=== PATIENT | female | born 1960 | race Caucasian/White ===

== ENCOUNTER 2024-05-09 09:45 | Emergency (ER) | payer OTHER, SELFPAY ==
[2024-05-09 10:01] VITALS: BP 159/92
[2024-05-09 11:34] VITALS: BMI 32.7
[2024-05-09] MEDS: ATIVAN 0.5 MG PO (11:55)
[2024-05-09] MEDS: TORADOL 15 MG IV (11:56)
[2024-05-09] MEDS: ZOFRAN 4 MG IV (11:56)
[2024-05-09] MEDS: NSS 1000 IV (11:56)
[2024-05-09 12:17] LABS: % Basophils 0.5 % (0-2); % Eosinophils 2.2 % (0-6); % Immature Granulocytes 0.3 % (0-0.5); % Monocytes 5.8 % (1.7-9.3); % Neutrophils 65.2 % (42.2-75.2); Absolute Basophils 0.1 10^3/uL (0-0.2); Absolute Eosinophils 0.2 10^3/uL (0-0.7); Absolute Lymphocytes 2.4 10^3/uL (1.2-3.4); Absolute Monocytes 0.5 10^3/uL (0.1-0.6); Absolute Neutrophils 6.1 10^3/uL (1.4-6.5); Hematocrit 41.1 % (37.0-47.0); Hemoglobin 13.9 g/dL (12.0-16.0); Mean Corp Hgb Conc. 33.8 g/dL (33.0-37.0); Mean Corpuscular Hgb 30.4 pg (27.0-31.0); Mean Corpuscular Volume 89.9 fL (81.0-99.0); Mean Platelet Volume 8.7 fL (7.4-10.4); Nucleated Red Blood Cells % 0 %; Platelet Count 261 10^3/uL (130-400); Red Blood Cell Count 4.57 10^6/uL (4.20-5.40); Red Cell Dist. Width 13.5 % (11.5-14.5); White Blood Cell Count 9.3 10^3/uL (4.8-10.8)
[2024-05-09 12:22] LABS: Urine Albumin Negative (Neg - Trace); Urine Bilirubin Negative (Negative); Urine Character Clear (Clear); Urine Color Yellow; Urine Glucose Negative (Negative); Urine Ketone Negative (Negative); Urine Leukocyte Negative (Negative); Urine Nitrite Negative (Negative); Urine Occult Blood Negative (Negative); Urine Urobilinogen Negative (Neg - 1+)
[2024-05-09 12:33] LABS: ALT (SGPT) 17 U/L (0-35); AST (SGOT) 28 U/L (14-36); Albumin 4.1 g/dl (3.5-5.0); Alkaline Phosphatase 79 U/L (38-126); Blood Urea Nitrogen 9 mg/dl (7-17); Calcium 9.6 mg/dl (8.4-10.2); Carbon Dioxide 25 mmol/L (22-30); Chloride 110 mmol/L (98-107); Estimated Creatinine Clearance 69 ml/min; Glucose 88 mg/dl (70-99); Lipase 119 U/L (23-300); Potassium 4.1 mmol/L (3.5-5.1); Sodium 139 mmol/L (135-145); Total Bilirubin 0.5 mg/dl (0.2-1.3); Total Protein 6.7 g/dl (6.3-8.2); eGFR > 60.00
[2024-05-09 13:00] VITALS: BP 140/69
[2024-05-09 14:00] VITALS: BP 117/72
[2024-05-09 15:00] VITALS: BP 130/82
--- NOTE | 2024-05-09 15:19 | ED.GENMED ---
History of Present Illness
General
Chief Complaint: Abdominal Pain
Source: patient
Exam Limitations: none
Time Seen by Provider: 05/09/24 10:42
Nursing documentation reviewed up to this point in time: agreed with
History of Present Illness
History of Present Illness:
63-year-old female past medical history of diverticulosis anxiety depression presenting to the emergency department today with concerns of left lower quadrant abdominal pain over the past few days. No significant change in bowel movements does have
some nausea no fevers no chest pain or shortness of breath. Has been feeling somewhat anxious.
Past History
Past History
ED Past Medical History: Psychiatric (anxiety, depression) and Other (Diverticulitis, diverticulosis, osteoarthritis, kidney stone)
ED Past Surgical History: Cholecystectomy, Gynecological and Orthopedic
Social History
Tobacco: Smoker
Alcohol: None
Personal: Single
Living: alone
Review of Systems
Review of Systems
Allergies reviewed?: Yes
All Other Systems: ROS reviewed and negative except as documented in HPI and ROS
Phy Exam
Physical Exam
Physical Exam:
GENERAL: Alert , in no apparent distress
EYE: pupils equal and reactive
NECK: Supple, no significant adenopathy.
ENT: o/p clr, mmm.
CARDIAC: Regular rate and rhythm .
LUNGS: Clear breath sounds bilaterally, no acute respiratory distress, no wheezes/rales/rhonchi
ABDOMEN: Pain to the left lower quadrant
NEUROLOGICAL: Alert and oriented, no focal neuro deficits
SKIN: Warm and dry, skin intact.
MUSCULOSKELETAL: No edema, well perfused.
PSYCH: Normal and appropriate interaction.
Course
Orders/Labs/Results
Orders:
Orders
05/09/24 10:58
CT Abd/Pel (IV only)-DH only Urgent
Comment:
Reason For Exam: llq pain
0.9% Sodium Chloride 1000 ml [Nss] 1,000 ml IV BOLUS
Ketorolac [Toradol] 15 mg IV NOW STA
Ondansetron Injectable [Zofran] 4 mg IV NOW STA
05/09/24 11:14
Lorazepam [Ativan] 0.5 mg PO NOW STA
05/09/24 11:54
Complete Blood Count/With Diff Urgent
Comprehensive Metabolic Panel Urgent
Lipase Urgent
05/09/24 12:00
Urinalysis Reflex To Culture Urgent
Date Specimen was Collected: 05/09/24
Time Specimen was Collected: 11:59
05/09/24 14:47
LevoFLOXacin [Levaquin] 750 mg PO NOW STA
05/09/24 15:03
MetroNIDAZOLE [Flagyl] 500 mg PO NOW STA
Abnormal Lab Results
05/09/24
11:54
Chloride 110 H mmol/L
(98-107)
05/09/24 11:54
05/09/24 11:54
Vital Signs
Initial and Last Documented VS:
Initial Vital Signs
Temp Pulse Resp BP Pulse Ox
98.3 F 77 18 159/92 99
05/09/24 10:01 05/09/24 10:01 05/09/24 10:01 05/09/24 10:01 05/09/24 10:01
Last Documented Vital Signs
Temp Pulse Resp BP Pulse Ox
98.3 F 70 20 117/72 98
05/09/24 10:01 05/09/24 14:30 05/09/24 14:30 05/09/24 14:00 05/09/24 14:30
MDM/Problems Addressed
MDM/Problems Addressed:
63-year-old female presenting to the emergency department today with concerns of left lower quadrant abdominal pain over the past few days. Does have a history of diverticulitis and claims this feels very similar to this. Here does have
reproducible pain to left lower quadrant. Labs unremarkable no white count no fever generally appears well urinalysis normal CT scan without obvious diverticulitis. Patient is very concerned that this could be early diverticulitis and claims that
she typically needs antibiotics for this. Risk and benefit of starting antibiotics were thoroughly discussed with the patient ended up deciding on starting antibiotics and otherwise close outpatient follow-up. Return precautions given.
*Critical Care Note
Total Time (30-74mins, 75-104mins- exclusive of procedures): Not Applicable
ED Attending Note
-
Portions of this chart may have been created with voice recognition software.� Occasional wrong word or��sound alike� substitutions may have occurred due to the inherent limitations of voice recognition software.
Discharge Plan
Departure
Patient Disposition: Home (Routine Discharge)
Date of Disposition: 05/09/24
Time of Disposition: 15:27
Patient with high blood pressure during this ER visit?: No
Condition: Good
Covid-19: Not Applicable
Discharge Problem:
Diverticulitis
Instructions: Diverticulitis (DC)
Prescriptions:
New
levofloxacin 750 mg tablet
750 mg PO DAILY 7 Days Qty: 7 0RF
metronidazole 500 mg tablet
500 mg PO BID 7 Days Qty: 14 0RF
No Action
lorazepam 0.5 MG tablet
0.5 tab PO BID
Patient Comments:
08/03/23 filled on 07/28/23 #30
Theragen Tablet
1 tab PO MOFR
Benefiber (guar gum) Packet
1 tbsp PO DAILY
furosemide 20 mg Tablet
20 mg PO DAILYPRN PRN (Reason: fluid retention)
diphenhydramine-acetaminophen [Tylenol PM Extra Strength] 25-500 mg Tablet
1 tab PO HS
Visbiome 112.5 billion cell Capsule
1 cap PO DAILY
albuterol sulfate 90 mcg/actuation Aerosol Powdr Breath Activated
2 inh INHALATION R Q6HPRN PRN (Reason: sob)
cyclobenzaprine 10 mg tablet
10 mg PO TID PRN (Reason: muscle spasm) Qty: 12 0RF
dicyclomine 10 mg capsule
10 mg PO QID PRN (Reason: abdominal pain) Qty: 30 0RF
Referrals:
Ken Gutierrez MD [Family Provider] -
Activity Restrictions/Additional Instructions:
You came to the emergency department today with concerns of lower abdominal pain. No emergent findings on exam but could be early diverticulitis. Please take the prescribed indications and return for any worsening, new or concerning symptoms.
Otherwise please follow closely with your GI doctor and primary care doctor within 1 to 2 weeks.
Interventions
Interventions:
*Risk Screen - Suicide Last Done: 05/09/24 10:03
*General Assessment Last Done: 05/09/24 10:03
*Neglect/Abuse Screening Last Done: 05/09/24 10:03
ED- Fall Risk Assessment Last Done: 05/09/24 11:34
*ED COVID-19 Vaccine History Last Done: 05/09/24 11:34
GJ-Joazxl-Rxyhluuncr Assessment Last Done: 05/09/24 11:34
Discharge Date and Time
Print Language: IRISH
[2024-05-09 16:00] VITALS: BP 153/80
[2024-05-09] MEDS: LEVAQUIN 750 MG PO (16:07)
[2024-05-09] MEDS: FLAGYL 500 MG PO (16:07)
== END 2024-05-09 16:37 | disposition home or self-care (01) ==
LOC: EMR 09:45
PROVIDERS: Physician Assistant; EMERGENCY PHYSICIAN Emergency Medicine; FAMILY PHYSICIAN Family Medicine
DX: K57.92 Diverticulitis of intestine, part unspecified, without perforation or abscess without bleeding (principal); F41.8 Other specified anxiety disorders; F17.200 Nicotine dependence, unspecified, uncomplicated; M19.90 Unspecified osteoarthritis, unspecified site; Z87.442 Personal history of urinary calculi; Z90.49 Acquired absence of other specified parts of digestive tract; Z90.710 Acquired absence of both cervix and uterus
CPT/HCPCS: 99284; 96374; 96375; 96361; 74177; 80053; 81003; 83690; 85025; Q9967

== ENCOUNTER 2024-05-29 18:55 | Emergency (ER) | payer OTHER, SELFPAY ==
[2024-05-29 19:03] VITALS: BP 150/97
[2024-05-29 19:24] LABS: Urine Albumin Negative (Neg - Trace); Urine Bilirubin Negative (Negative); Urine Character Clear (Clear); Urine Color Yellow; Urine Glucose Negative (Negative); Urine Ketone Negative (Negative); Urine Leukocyte Trace (Negative); Urine Nitrite Negative (Negative); Urine Occult Blood Negative (Negative); Urine Urobilinogen Negative (Neg - 1+)
[2024-05-29 19:35] LABS: Urine Red Blood Cell 0-2 /HPF (0-2); Urine White Cell 0-2 /HPF (0-5)
[2024-05-29 19:41] LABS: ALT (SGPT) 15 U/L (0-35); AST (SGOT) 27 U/L (14-36); Albumin 4.2 g/dl (3.5-5.0); Alkaline Phosphatase 76 U/L (38-126); Blood Urea Nitrogen 8 mg/dl (7-17); Calcium 9.6 mg/dl (8.4-10.2); Carbon Dioxide 30 mmol/L (22-30); Chloride 104 mmol/L (98-107); Glucose 89 mg/dl (70-99); Lipase 114 U/L (23-300); Potassium 4.3 mmol/L (3.5-5.1); Sodium 142 mmol/L (135-145); Total Bilirubin 0.4 mg/dl (0.2-1.3); Total Protein 6.7 g/dl (6.3-8.2); eGFR > 60.00
[2024-05-29 19:43] LABS: Hematocrit 39.3 % (37.0-47.0); Mean Corp Hgb Conc. 33.1 g/dL (33.0-37.0); Mean Corpuscular Volume 90.6 fL (81.0-99.0); Mean Platelet Volume 8.4 fL (7.4-10.4); Platelet Count 287 10^3/uL (130-400); Red Blood Cell Count 4.34 10^6/uL (4.20-5.40); Red Cell Dist. Width 13.2 % (11.5-14.5); White Blood Cell Count 9.4 10^3/uL (4.8-10.8)
[2024-05-29 19:58] LABS: % Basophils 0.5 % (0-2); % Eosinophils 2.9 % (0-6); % Immature Granulocytes 0.2 % (0-0.5); % Lymphocytes 34.2 % (20.5-51.1); % Monocytes 7.4 % (1.7-9.3); % Neutrophils 54.8 % (42.2-75.2); Absolute Basophils 0.1 10^3/uL (0-0.2); Absolute Eosinophils 0.3 10^3/uL (0-0.7); Absolute Lymphocytes 3.2 10^3/uL (1.2-3.4); Absolute Monocytes 0.7 10^3/uL (0.1-0.6); Absolute Neutrophils 5.1 10^3/uL (1.4-6.5); Nucleated Red Blood Cells % 0 %
--- NOTE | 2024-05-29 23:55 | ED.GENMED ---
History of Present Illness
General
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
Source: patient, previous radiology exam (Previous CT of the abdomen and pelvis 3 weeks ago, overall unremarkable and unchanged from previous August 2023. Unremarkable pelvic ultrasound August 2023.) and previous hospital records (Several ED
visits for similar complaints including twice August 2023 and most recently May 09, 2024)
Exam Limitations: none
Time Seen by Provider: 05/29/24 22:16
Nursing documentation reviewed up to this point in time: agreed with
History of Present Illness
History of Present Illness:
This is a 63-year-old woman who has history of chronic intermittent abdominal pain, chronic back pain status post lower lumbar laminectomy 2022. She has history of diverticulosis and remote history of diverticulitis, history of kidney stones as
well as reported history of ovarian cysts. Prior hysterectomy and right oophorectomy but reports left ovary remains.
She presents with persistent suprapubic left lower quadrant abdominal pain that has been ongoing for several weeks. Similar pain noted during 2 ED visits in August 2023 as well.
During those ED visits in August as well as most recently May 09, ED workup unremarkable with unremarkable laboratory studies, unremarkable urinalysis and unremarkable CT of the abdomen and pelvis in August and again May 09. Unremarkable
pelvic ultrasound August 2023 without visualization of the left ovary.
During most recent visit May 09 patient complained of left lower quadrant pain, suprapubic pain which she states felt similar to prior episodes of diverticulitis. Despite unremarkable labs and CAT scan showing diverticulosis without evidence of
diverticulitis patient remained concerned for early diverticulitis thus was prescribed a 1 week course of Levaquin and Flagyl which she initiated but then states she discontinued after 3 days due to no improvement in pain.
She admits to some chronic urinary frequency but has had no dysuria nor urgency nor incontinence. She does note chronic low back pain but stable and unchanged and states she has had a recent visit with her neurosurgeon who does not believe
abdominal pain is related to her lumbar spine.
She has had no leg pain, no weakness no numbness, no fever no chills. She does admit to some chronic nausea but has had no vomiting.
She follows with GI and she was recommended to undergo gastric emptying study.
Patient states she was evaluated by her log raft worker several weeks ago with unremarkable exam.
She is concerned that her lower abdominal pain is related to her left ovary.
Past History
Past History
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
ED Past Surgical History: Cholecystectomy, Gynecological and Orthopedic
Social History
Tobacco: Smoker
Alcohol: None
Personal:
Living: alone
Employment: Disabled
Family History
Family History: Other (Noncontributory)
Phy Exam
Physical Exam
Physical Exam:
GENERAL: 63-year-old woman appears her stated age, awake and alert, mildly anxious, intermittently tearful but easily communicative.
EYE: anicteric
NECK: Supple, nontender, no meningismus, no significant adenopathy.
ENT: oral mucosa is moist. No rhinorrhea.
CARDIAC: Regular rate and rhythm. no murmur.
LUNGS: Clear breath sounds bilaterally, no acute respiratory distress, no wheezes/rales/rhonchi
ABDOMEN: Rotund, soft, nondistended, mild tenderness with deep palpation only to the left lower quadrant, no r/g, no cvat. normoactive BS. No palpable masses. No inguinal tenderness.
NEUROLOGICAL: Alert and oriented x3, no focal neuro deficits. Gait is jovel and steady.
SKIN: Warm and dry, normal color, skin intact. No rash.
MUSCULOSKELETAL: No C/C/E. peripheral pulses are full and equal b/l. No palpable tenderness.
PSYCH: Mildly anxious. Intermittently tearful. Fair insight and judgment. Normal speech pattern.
Course
Orders/Labs/Results
Orders:
Orders
05/29/24 19:19
Complete Blood Count/With Diff Urgent
Comprehensive Metabolic Panel Urgent
Lipase Urgent
Urinalysis Reflex To Culture Urgent
Date Specimen was Collected: 05/29/24
Time Specimen was Collected: 19:08
Urine Microscopic Reflex Cult Urgent
05/29/24 22:32
Pelvis & Transvaginal US [US Pelvis W Transvag Combined] Urgent
Comment:
Reason For Exam: LLQ pain
Abnormal Lab Results
05/29/24
19:19
Absolute Monos (auto) 0.7 H 10^3/uL
(0.1-0.6)
Leukocyte Esterase Rfl Trace A
(Negative)
05/29/24 19:19
05/29/24 19:19
Vital Signs
Initial and Last Documented VS:
Initial Vital Signs
Temp Pulse Resp BP Pulse Ox
98.5 F 66 16 150/97 98
05/29/24 19:03 05/29/24 19:03 05/29/24 19:03 05/29/24 19:03 05/29/24 19:03
Last Documented Vital Signs
Temp Pulse Resp BP Pulse Ox
98.5 F 66 16 150/97 98
05/29/24 19:03 05/29/24 19:03 05/29/24 19:03 05/29/24 19:03 05/29/24 19:03
MDM/Problems Addressed
Differential Diagnosis Includes:
Patient presents with left lower quadrant pain, ongoing for several weeks.
Unremarkable ED evaluation May 09 with unremarkable labs, unremarkable CT abdomen pelvis showing diverticulosis without diverticulitis.
Despite these findings, 1 week course of Levaquin and Flagyl prescribed which patient discontinued after 3 days due to no improvement in pain.
Reportedly has left ovary in place status post hysterectomy and right oophorectomy.
There could be some concern for left ovary pathology versus irritable bowel, constipation, UTI.
Labs again are unremarkable and urinalysis is unremarkable as well.
Will plan for pelvic ultrasound assess for potential ovarian pathology however CT abdomen pelvis 3 weeks ago showed no evidence of pelvic mass.
*Radiology
Radiology exam reviewed: radiology read reviewed
*Pulse Oximetry
Patient hypoxic: no
*Critical Care Note
Total Time (30-74mins, 75-104mins- exclusive of procedures): Not Applicable
Update Note
Update Note:
05/30/2024 0021 AM
Pelvic ultrasound is unremarkable. Left ovary not visualized. No appreciable pelvic mass nor pelvic free fluid.
Patient admits that she is under significant stress, family related stress which I believe is aggravating her lower abdominal pain. I suspect an element of irritable bowel. She does have prescription for Bentyl at home but has not tried this.
Recommend she try Bentyl, 10 to 20 mg 4 times daily as needed for abdominal pain.
Other supportive measures including heating pad. She does use medical marijuana as well which may be helpful.
She has also been encouraged to follow-up with her broadcast program director for further evaluation.
Return precautions discussed.
ED Attending Note
-
Portions of this chart may have been created with voice recognition software.� Occasional wrong word or��sound alike� substitutions may have occurred due to the inherent limitations of voice recognition software.
Discharge Plan
Departure
Patient Disposition: Home (Routine Discharge)
Date of Disposition: 05/30/24
Time of Disposition: 00:22
Patient with high blood pressure during this ER visit?: No
Condition: Good
Discharge Problem:
Recurrent left lower quadrant abdominal pain
Instructions: Irritable bowel syndrome
Prescriptions:
No Action
lorazepam 0.5 MG tablet
0.5 tab PO BID
Patient Comments:
08/03/23 filled on 07/28/23 #30
Theragen Tablet
1 tab PO MOFR
Benefiber (guar gum) Packet
1 tbsp PO DAILY
furosemide 20 mg Tablet
20 mg PO DAILYPRN PRN (Reason: fluid retention)
diphenhydramine-acetaminophen [Tylenol PM Extra Strength] 25-500 mg Tablet
1 tab PO HS
Visbiome 112.5 billion cell Capsule
1 cap PO DAILY
albuterol sulfate 90 mcg/actuation Aerosol Powdr Breath Activated
2 inh INHALATION R Q6HPRN PRN (Reason: sob)
cyclobenzaprine 10 mg tablet
10 mg PO TID PRN (Reason: muscle spasm) Qty: 12 0RF
dicyclomine 10 mg capsule
10 mg PO QID PRN (Reason: abdominal pain) Qty: 30 0RF
levofloxacin 750 mg tablet
750 mg PO DAILY 7 Days Qty: 7 0RF
metronidazole 500 mg tablet
500 mg PO BID 7 Days Qty: 14 0RF
Referrals:
Sondra Rodriguez MD [Active] - Call in 1-3 days for appt
Ken Gutierrez MD [Family Provider] -
Activity Restrictions/Additional Instructions:
Give the dicyclomine to try taking 10 to 20 mg 4 times daily as needed for abdominal pain.
Continue local heat with heating pad.
Continue medical marijuana.
Follow-up with your broadcast program director for further evaluation. You have been provided with referral information for [facility] broadcast program director, Dr. Rodriguez as an alternative for GI follow-up.
Interventions
Interventions:
*Risk Screen - Suicide Last Done: 05/29/24 22:31
*General Assessment Last Done: 05/29/24 22:31
*Neglect/Abuse Screening Last Done: 05/29/24 22:31
*ED COVID-19 Vaccine History Last Done: 05/29/24 22:31
*Nursing Disposition Last Done: 05/30/24 00:22
ED-Female Genitourinary Assessment Last Done: 05/29/24 22:31
Discharge Date and Time
Discharge Date/Time: 05/30/24 00:22
Print Language: LUXEMBOURGISH
== END 2024-05-30 00:22 | disposition home or self-care (01) ==
LOC: EMR 18:55
PROVIDERS: Emergency Medicine; EMERGENCY PHYSICIAN Emergency Medicine; FAMILY PHYSICIAN Family Medicine
DX: R10.32 Left lower quadrant pain (principal); F41.9 Anxiety disorder, unspecified; M19.90 Unspecified osteoarthritis, unspecified site; F17.200 Nicotine dependence, unspecified, uncomplicated; Z87.442 Personal history of urinary calculi; Z90.49 Acquired absence of other specified parts of digestive tract; Z90.710 Acquired absence of both cervix and uterus; Z90.721 Acquired absence of ovaries, unilateral
CPT/HCPCS: 99284; 76830; 76856; 80053; 81003; 81015; 83690; 85025

== ENCOUNTER 2024-06-16 10:22 | Emergency (ER) | payer OTHER, SELFPAY ==
[2024-06-16 10:36] VITALS: BP 148/84
[2024-06-16 11:09] VITALS: BMI 34.1
--- NOTE | 2024-06-16 11:12 | ED.GENMED ---
History of Present Illness
General
Chief Complaint: Abdominal Symptoms
Source: patient and records
Time Seen by Provider: 06/16/24 10:50
History of Present Illness
History of Present Illness:
63 year old female with past medical history of chronic intermittent abdominal pain, chronic back pain, anxiety/depression, previous history of diverticulosis/dicerticulitis who presents back to the ER for the third time in a little over a month for
re-evaluation of continued left lower abdominal pain, decreased PO intake to solids and liquids, reported weight loss, diffuse joint pain, back/neck pain, palpitations, headaches, loose stool and generally feeling unwell. Patient has had stool
studies, abdominal CT scan and pelvic US which did not yield any pathologies. She had a telehealth visit with her PCP a few weeks ago but no further tests/treatments done. Patient believes she is 'severely dehydrated' and needs fluids as well as
wants to know what is wrong. Patient unaware of any fevers but does state she often gets hot and cold. Social history noted for tobacco use. Surgical history was noted for l4-l5 surgery in April of this year.
Past History
Past History
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
ED Past Surgical History: Cholecystectomy, Gynecological and Orthopedic
Social History
Tobacco: Smoker
Alcohol: None
Drug: None
Personal:
Living: alone
Employment: Disabled
Family History
Family History: Other (Noncontributory)
Review of Systems
Review of Systems
All Other Systems: ROS reviewed and negative except as documented in HPI and ROS
Phy Exam
Physical Exam
Physical Exam:
GENERAL: Alert , tearful, appears uncomfortable but without any focality
HEAD: NCAT
EYE: clear conjunctiva
NECK: Supple
ENT: o/p clr, mmm.
CARDIAC: Regular rate and rhythm, systolic murmur left 2nd ICS .
LUNGS: Clear breath sounds bilaterally, no acute respiratory distress, no wheezes/rales/rhonchi
ABDOMEN: Soft, LLQ ttp, no r/g, no cvat
BACK: well healed surgical incision to midline lumbar region
NEUROLOGICAL: Alert and oriented
SKIN: Warm and dry, skin intact.
MUSCULOSKELETAL: well perfused.
PSYCH: Normal and appropriate interaction.
Scores
Heart Failure Risk
Heart Failure Risk Score: Not Applicable
Heart Score for Chest Pain Patients
STEMI patient?: Not applicable
Withdrawal Assessment of Alcohol
Withdrawal Assessment Completed?: Not applicable
Course
Orders/Labs/Results
Orders:
Orders
06/16/24 11:07
Electrocardiogram (*1) Urgent
Reason for Study: Abdominal Pain
EKG- Treatment ONCE
06/16/24 11:08
0.9% Sodium Chloride 1000 ml [Nss] 1,000 ml IV BOLUS
06/16/24 11:27
Complete Blood Count/With Diff Urgent
Comprehensive Metabolic Panel Urgent
Lyme Progressive Urgent
TSH Urgent
Troponin I Urgent
06/16/24 11:43
UA Reflex to Culture [Urinalysis Reflex To Culture] Urgent
Date Specimen was Collected: 06/16/24
Time Specimen was Collected: 11:40
06/16/24 11:27
06/16/24 11:27
Vital Signs
Initial and Last Documented VS:
Initial Vital Signs
Temp Pulse Resp BP Pulse Ox
98 F 75 16 148/84 98
06/16/24 10:36 06/16/24 10:36 06/16/24 10:36 06/16/24 10:36 06/16/24 10:36
Last Documented Vital Signs
Temp Pulse Resp BP Pulse Ox
98 F 75 16 148/84 98
06/16/24 10:36 06/16/24 10:36 06/16/24 10:36 06/16/24 10:36 06/16/24 10:36
MDM/Problems Addressed
Differential Diagnosis Includes:
Anemia, electrolyte disturbance, less concern for an acute infectious etiology, exacerbation of chronic pain syndromes, Lyme considered, rheumatologic condition
MDM/Problems Addressed:
63-year-old female presenting to the emergency department for wide range of symptoms that have been occurring over the course of a month or so. Patient has had workup for this including labs, stool studies, CT of the abdomen and pelvis and
ultrasound of the pelvic region without any specific etiology found. Patient CT did show diverticulosis and she was treated with Levaquin and Flagyl but states she developed a rash from this so discontinued use of the medication after 3 days.
Based off of the wide-ranging symptoms without any focality I am less suspicious for any acute emergent pathologies, recurring diverticulitis or any other acute infectious etiologies. Patient seems to be most concerned with dehydration although she
is not exhibiting any signs of hypotension or tachycardia. Will check labs and treat with fluids. I did order a Lyme titer and thyroid studies. I considered ESR/CRP and other rheumatologic test however this would all be nonspecific and can be
completed as an outpatient. Anticipate discharge home.
*Pulse Oximetry
Patient hypoxic: no
*Critical Care Note
Total Time (30-74mins, 75-104mins- exclusive of procedures): Not Applicable
Data Reviewed
Review of Other/Old Records Reveals: Labs, Records and Radiology Studies
Source: patient and records
Patient Management
Escalation/DeEscalation of care consider admission/obs:
Patient's labs and urine are all within normal limits and do not show any abnormalities. Again I explained to the patient that while she may not be feeling well I did not suspect any emergent pathologies or the cause for her symptoms and that she
can continue this workup as an outpatient. Explained that her Lyme test would come back in a few days and that if there were anything abnormal we would contact her. Patient aware of return precautions to the ER but otherwise stable for discharge
home.
ED Attending Note
-
Portions of this chart may have been created with voice recognition software.� Occasional wrong word or��sound alike� substitutions may have occurred due to the inherent limitations of voice recognition software.
Discharge Plan
Departure
Patient Disposition: Home (Routine Discharge)
Date of Disposition: 06/16/24
Time of Disposition: 12:29
Patient with high blood pressure during this ER visit?: Yes
Discharge Problem:
Abdominal pain, Generalized joint pain
Instructions: Abdominal Pain
Prescriptions:
No Action
lorazepam 0.5 MG tablet
0.5 tab PO BID
Patient Comments:
08/03/23 filled on 07/28/23 #30
Theragen Tablet
1 tab PO MOFR
Benefiber (guar gum) Packet
1 tbsp PO DAILY
furosemide 20 mg Tablet
20 mg PO DAILYPRN PRN (Reason: fluid retention)
diphenhydramine-acetaminophen [Tylenol PM Extra Strength] 25-500 mg Tablet
1 tab PO HS
Visbiome 112.5 billion cell Capsule
1 cap PO DAILY
albuterol sulfate 90 mcg/actuation Aerosol Powdr Breath Activated
2 inh INHALATION R Q6HPRN PRN (Reason: sob)
cyclobenzaprine 10 mg tablet
10 mg PO TID PRN (Reason: muscle spasm) Qty: 12 0RF
dicyclomine 10 mg capsule
10 mg PO QID PRN (Reason: abdominal pain) Qty: 30 0RF
levofloxacin 750 mg tablet
750 mg PO DAILY 7 Days Qty: 7 0RF
metronidazole 500 mg tablet
500 mg PO BID 7 Days Qty: 14 0RF
Referrals:
Ken Gutierrez MD [Family Provider] -
Interventions
Interventions:
*Risk Screen - Suicide Last Done: 06/16/24 10:36
*General Assessment Last Done: 06/16/24 10:36
*Neglect/Abuse Screening Last Done: 06/16/24 10:36
ED- Fall Risk Assessment Last Done: 06/16/24 11:10
*ED COVID-19 Vaccine History Last Done: 06/16/24 11:09
NW-Momdfc-Ghwinynjxh Assessment Last Done: 06/16/24 11:25
Discharge Date and Time
Print Language: INDONESIAN
[2024-06-16] MEDS: NSS 1000 IV (11:27)
[2024-06-16 11:40] LABS: % Basophils 0.6 % (0-2); % Eosinophils 2.1 % (0-6); % Immature Granulocytes 0.3 % (0-0.5); % Lymphocytes 26.9 % (20.5-51.1); % Monocytes 5.6 % (1.7-9.3); % Neutrophils 64.5 % (42.2-75.2); Absolute Basophils 0.1 10^3/uL (0-0.2); Absolute Eosinophils 0.2 10^3/uL (0-0.7); Absolute Lymphocytes 2.1 10^3/uL (1.2-3.4); Absolute Monocytes 0.4 10^3/uL (0.1-0.6); Absolute Neutrophils 5.1 10^3/uL (1.4-6.5); Hematocrit 43.5 % (37.0-47.0); Hemoglobin 14.5 g/dL (12.0-16.0); Mean Corp Hgb Conc. 33.3 g/dL (33.0-37.0); Mean Corpuscular Hgb 30.2 pg (27.0-31.0); Mean Corpuscular Volume 90.6 fL (81.0-99.0); Mean Platelet Volume 8.3 fL (7.4-10.4); Nucleated Red Blood Cells % 0 %; Platelet Count 247 10^3/uL (130-400); Red Cell Dist. Width 13.2 % (11.5-14.5); White Blood Cell Count 7.9 10^3/uL (4.8-10.8)
[2024-06-16 11:52] LABS: ALT (SGPT) 19 U/L (0-35); AST (SGOT) 33 U/L (14-36); Albumin 4.4 g/dl (3.5-5.0); Alkaline Phosphatase 76 U/L (38-126); Blood Urea Nitrogen 8 mg/dl (7-17); Carbon Dioxide 26 mmol/L (22-30); Chloride 106 mmol/L (98-107); Estimated Creatinine Clearance 69 ml/min; Glucose 95 mg/dl (70-99); Potassium 4.3 mmol/L (3.5-5.1); Sodium 145 mmol/L (135-145); Total Bilirubin 0.5 mg/dl (0.2-1.3); Total Protein 7.2 g/dl (6.3-8.2); eGFR > 60.00
[2024-06-16 11:58] LABS: Urine Albumin Negative (Neg - Trace); Urine Bilirubin Negative (Negative); Urine Character Clear (Clear); Urine Color Yellow; Urine Glucose Negative (Negative); Urine Ketone Negative (Negative); Urine Leukocyte Negative (Negative); Urine Nitrite Negative (Negative); Urine Occult Blood Negative (Negative); Urine Urobilinogen Negative (Neg - 1+)
[2024-06-16 12:25] LABS: TSH 1.12 uIU/ml (0.47-4.68); Troponin I < 0.012 ng/ml
[2024-06-17 11:23] LABS: Lyme Antibody Screen, EIA Negative (Negative)
== END 2024-06-16 12:45 | disposition home or self-care (01) ==
LOC: EMR 10:22
PROVIDERS: Physician Assistant Medical; EMERGENCY PHYSICIAN Emergency Medicine; FAMILY PHYSICIAN Family Medicine
DX: R10.32 Left lower quadrant pain (principal); M25.50 Pain in unspecified joint; G89.29 Other chronic pain; M54.9 Dorsalgia, unspecified; F41.8 Other specified anxiety disorders; F17.200 Nicotine dependence, unspecified, uncomplicated; Z87.442 Personal history of urinary calculi; Z90.49 Acquired absence of other specified parts of digestive tract
CPT/HCPCS: 99283; 80053; 81003; 84443; 84484; 85025; 86618; 93005

== ENCOUNTER 2024-08-29 09:05 | Emergency (ER) | payer OTHER, SELFPAY ==
[2024-08-29 09:05] VITALS: BMI 32.0
[2024-08-29 09:06] VITALS: BP 168/98
--- NOTE | 2024-08-29 09:30 | ED.GENMED ---
History of Present Illness
General
Chief Complaint: Abdominal Symptoms
Source: patient
Exam Limitations: none
Time Seen by Provider: 08/29/24 09:17
Nursing documentation reviewed up to this point in time: agreed with
History of Present Illness
History of Present Illness:
63-year-old female with past medical history of previous diverticulitis diverticulosis anxiety depression chronic abdominal issues over the past few months presenting to the emergency department today with concerns of of ongoing nausea vomiting
diarrhea. Worsened over the past few days. Has had some general abdominal discomfort over the past few months but worsened over the past few days unable to tolerate by mouth. Had 1 meatball preceding symptoms by a day or so. Claims she felt
somewhat warm a few days ago but denies any objective fevers. Denies chest pain shortness of breath. Stool is loose but not in large volume. Unable to tolerate by mouth today or yesterday. She has been taking Bentyl at home without relief of
symptoms.
Past History
Past History
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
ED Past Surgical History: Cholecystectomy, Gynecological and Orthopedic
Social History
Tobacco: Smoker
Alcohol: None
Drug: None
Personal:
Living: alone
Employment: Disabled
Family History
Family History: Other (Noncontributory)
Review of Systems
Review of Systems
Allergies reviewed?: Yes
All Other Systems: ROS reviewed and negative except as documented in HPI and ROS
Phy Exam
Physical Exam
Physical Exam:
GENERAL: Alert , in no apparent distress
EYE: pupils equal and reactive
NECK: Supple, no significant adenopathy.
ENT: o/p clr, mmm.
CARDIAC: Regular rate and rhythm .
LUNGS: Clear breath sounds bilaterally, no acute respiratory distress, no wheezes/rales/rhonchi
ABDOMEN: Vague abdominal discomfort throughout the abdomen maximal to the left lower quadrant
NEUROLOGICAL: Alert and oriented, no focal neuro deficits
SKIN: Warm and dry, skin intact.
MUSCULOSKELETAL: No edema, well perfused.
PSYCH: Normal and appropriate interaction.
Course
Orders/Labs/Results
Orders:
Orders
08/29/24 09:24
0.9% Sodium Chloride 1000 ml [Nss] 1,000 ml IV BOLUS
Famotidine [Pepcid] 20 mg IV NOW STA
Ondansetron Injectable [Zofran] 4 mg IV NOW STA
08/29/24 09:26
Dicyclomine HCl [Bentyl] 20 mg IM NOW STA
08/29/24 09:48
Complete Blood Count/With Diff Urgent
Comprehensive Metabolic Panel Urgent
Lipase Urgent
Urinalysis Reflex To Culture Urgent
Date Specimen was Collected: 08/29/24
Time Specimen was Collected: 09:40
Urine Microscopic Reflex Cult Urgent
Urine Culture Urgent
HALIMA Source: U
Specimen Description:
Date Specimen was Collected: 08/29/24
Time Specimen was Collected: 09:40
08/29/24 10:52
CT Abd/Pel (IV only)-DH only Urgent
Comment:
Reason For Exam: llq pain hx diverticulitis
Abnormal Lab Results
08/29/24
09:48
Urine Ketones Trace A
(Negative)
Urine Bilirubin 1+ A
(Negative)
Leukocyte Esterase Rfl 2+ A
(Negative)
Urine WBC (Reflex) 11-15 A /HPF
(0-5)
Urine Bacteria (Reflex) Moderate A
(Negative)
08/29/24 09:48
08/29/24 09:48
Vital Signs
Initial and Last Documented VS:
Initial Vital Signs
Temp Pulse Resp BP Pulse Ox
98.6 F 84 16 168/98 98
08/29/24 09:06 08/29/24 09:06 08/29/24 09:06 08/29/24 09:06 08/29/24 09:06
Last Documented Vital Signs
Temp Pulse Resp BP Pulse Ox
98.6 F 74 21 135/117 95
08/29/24 09:06 08/29/24 11:15 08/29/24 11:15 08/29/24 11:00 08/29/24 11:15
MDM/Problems Addressed
MDM/Problems Addressed:
63-year-old female presenting to the emergency department today with concerns of nausea vomiting movements over the past 2 days. Has had generalized weakness decreased appetite shortness of breath no objective fevers did feel warm day or so ago.
Upon arrival blood pressure elevated otherwise vital signs are normal. Does have vague discomfort throughout the abdomen maximal to the left lower quadrant. She claims this feels similar multiple episodes she has had over the past few months.
Patient does have ongoing pain to the left lower quadrant CT scan was performed that did not show any acute abnormalities labs unremarkable patient no distress here likely with ongoing chronic abdominal issues advised for close outpatient follow-up
with GI return precautions given.
*Critical Care Note
Total Time (30-74mins, 75-104mins- exclusive of procedures): Not Applicable
ED Attending Note
-
Portions of this chart may have been created with voice recognition software.� Occasional wrong word or��sound alike� substitutions may have occurred due to the inherent limitations of voice recognition software.
Discharge Plan
Departure
Patient Disposition: Home (Routine Discharge)
Date of Disposition: 08/29/24
Time of Disposition: 13:56
Patient with high blood pressure during this ER visit?: No
Condition: Good
Covid-19: Not Applicable
Discharge Problem:
Vomiting, Abdominal pain
Instructions: Nausea and Vomiting, Adult (DC), Abdominal Pain
Prescriptions:
New
ondansetron 4 mg tablet,disintegrating
4 mg PO Q6H PRN (Reason: nausea and vomiting) Qty: 7 0RF
No Action
lorazepam 0.5 MG tablet
0.5 tab PO BID
Patient Comments:
08/03/23 filled on 07/28/23 #30
Theragen Tablet
1 tab PO MOFR
Benefiber (guar gum) Packet
1 tbsp PO DAILY
furosemide 20 mg Tablet
20 mg PO DAILYPRN PRN (Reason: fluid retention)
diphenhydramine-acetaminophen [Tylenol PM Extra Strength] 25-500 mg Tablet
1 tab PO HS
Visbiome 112.5 billion cell Capsule
1 cap PO DAILY
albuterol sulfate 90 mcg/actuation Aerosol Powdr Breath Activated
2 inh INHALATION R Q6HPRN PRN (Reason: sob)
cyclobenzaprine 10 mg tablet
10 mg PO TID PRN (Reason: muscle spasm) Qty: 12 0RF
dicyclomine 10 mg capsule
10 mg PO QID PRN (Reason: abdominal pain) Qty: 30 0RF
levofloxacin 750 mg tablet
750 mg PO DAILY 7 Days Qty: 7 0RF
metronidazole 500 mg tablet
500 mg PO BID 7 Days Qty: 14 0RF
Referrals:
Ken Gutierrez MD [Family Provider] -
Activity Restrictions/Additional Instructions:
You came to the emergency department today with concerns of nausea vomiting abdominal pain. Here your reassuring assessment normal CT scan and normal labs. Please follow closely with GI. Return to the emergency department any worsening, new or
concerning symptoms.
Interventions
Interventions:
*Risk Screen - Suicide Last Done: 08/29/24 09:06
*General Assessment Last Done: 08/29/24 10:04
*Neglect/Abuse Screening Last Done: 08/29/24 09:06
ED- Fall Risk Assessment Last Done: 08/29/24 10:04
*ED COVID-19 Vaccine History Last Done: 08/29/24 10:04
VF-Wczmst-Ldswiwiydk Assessment Last Done: 08/29/24 10:04
Discharge Date and Time
Print Language: MOHAWK
[2024-08-29 09:56] VITALS: BP 139/88
[2024-08-29] MEDS: NSS 1000 IV (09:56)
[2024-08-29] MEDS: ZOFRAN 4 MG IV (09:57)
[2024-08-29] MEDS: BENTYL 20 MG IM (09:57)
[2024-08-29] MEDS: PEPCID 20 MG IV (09:57)
[2024-08-29 09:58] VITALS: BMI 32.0
[2024-08-29 10:00] VITALS: BP 134/102
[2024-08-29 10:10] LABS: Urine Albumin Trace (Neg - Trace); Urine Bilirubin 1+ (Negative); Urine Character Clear (Clear); Urine Color Yellow; Urine Glucose Negative (Negative); Urine Ketone Trace (Negative); Urine Leukocyte 2+ (Negative); Urine Nitrite Negative (Negative); Urine Occult Blood Negative (Negative); Urine Specific Gravity 1.025 (<1.030); Urine Urobilinogen 1+ (Neg - 1+)
[2024-08-29 10:27] LABS: % Basophils 0.7 % (0-2); % Eosinophils 1.6 % (0-6); % Immature Granulocytes 0.2 % (0-0.5); % Lymphocytes 23.6 % (20.5-51.1); % Monocytes 5.7 % (1.7-9.3); % Neutrophils 68.2 % (42.2-75.2); Absolute Basophils 0.1 10^3/uL (0-0.2); Absolute Eosinophils 0.1 10^3/uL (0-0.7); Absolute Lymphocytes 1.9 10^3/uL (1.2-3.4); Absolute Monocytes 0.5 10^3/uL (0.1-0.6); Absolute Neutrophils 5.5 10^3/uL (1.4-6.5); Hemoglobin 15.3 g/dL (12.0-16.0); Mean Corp Hgb Conc. 33.3 g/dL (33.0-37.0); Mean Corpuscular Hgb 30.5 pg (27.0-31.0); Mean Corpuscular Volume 91.8 fL (81.0-99.0); Mean Platelet Volume 8.6 fL (7.4-10.4); Nucleated Red Blood Cells % 0 %; Platelet Count 253 10^3/uL (130-400); Red Blood Cell Count 5.01 10^6/uL (4.20-5.40); Red Cell Dist. Width 13.4 % (11.5-14.5); White Blood Cell Count 8.1 10^3/uL (4.8-10.8)
[2024-08-29 10:28] LABS: ALT (SGPT) 22 U/L (0-35); AST (SGOT) 35 U/L (14-36); Albumin 4.3 g/dl (3.5-5.0); Alkaline Phosphatase 66 U/L (38-126); Blood Urea Nitrogen 13 mg/dl (7-17); Calcium 9.6 mg/dl (8.4-10.2); Carbon Dioxide 27 mmol/L (22-30); Chloride 107 mmol/L (98-107); Estimated Creatinine Clearance 53 ml/min; Glucose 96 mg/dl (70-99); Lipase 101 U/L (23-300); Sodium 144 mmol/L (135-145); Total Bilirubin 0.6 mg/dl (0.2-1.3); Total Protein 7.1 g/dl (6.3-8.2); eGFR > 60.00
[2024-08-29 10:33] LABS: Urine Squamous Cell >30 /LPF (Few)
[2024-08-29 10:34] LABS: Urine Bacteria Moderate (Negative); Urine Red Blood Cell 0-2 /HPF (0-2)
[2024-08-29 11:00] VITALS: BP 135/117
[2024-08-29 14:35] VITALS: BP 124/76
== END 2024-08-29 14:35 | disposition home or self-care (01) ==
LOC: EMR 09:05
PROVIDERS: Physician Assistant; EMERGENCY PHYSICIAN Emergency Medicine; FAMILY PHYSICIAN Family Medicine
DX: R11.2 Nausea with vomiting, unspecified (principal); R19.7 Diarrhea, unspecified; F41.8 Other specified anxiety disorders; F17.200 Nicotine dependence, unspecified, uncomplicated; M19.90 Unspecified osteoarthritis, unspecified site; Z87.442 Personal history of urinary calculi; Z90.49 Acquired absence of other specified parts of digestive tract
CPT/HCPCS: 99284; 96374; 96375; 96372; 96361; 74177; 80053; 81003; 81015; 83690; 85025; 87086; Q9967

== ENCOUNTER 2024-09-01 11:06 | Emergency (ER) | payer OTHER, SELFPAY ==
[2024-09-01 11:08] VITALS: BP 145/79
[2024-09-01 12:19] LABS: % Basophils 0.4 % (0-2); % Eosinophils 1.1 % (0-6); % Immature Granulocytes 0.2 % (0-0.5); % Monocytes 4.5 % (1.7-9.3); % Neutrophils 73.8 % (42.2-75.2); Absolute Eosinophils 0.1 10^3/uL (0-0.7); Absolute Monocytes 0.5 10^3/uL (0.1-0.6); Absolute Neutrophils 7.4 10^3/uL (1.4-6.5); Hematocrit 44.9 % (37.0-47.0); Hemoglobin 15.2 g/dL (12.0-16.0); Mean Corp Hgb Conc. 33.9 g/dL (33.0-37.0); Mean Corpuscular Hgb 31.1 pg (27.0-31.0); Mean Platelet Volume 8.6 fL (7.4-10.4); Nucleated Red Blood Cells % 0 %; Platelet Count 258 10^3/uL (130-400); Red Blood Cell Count 4.88 10^6/uL (4.20-5.40); Red Cell Dist. Width 13.2 % (11.5-14.5); White Blood Cell Count 10.1 10^3/uL (4.8-10.8)
[2024-09-01 12:34] LABS: ALT (SGPT) 22 U/L (0-35); AST (SGOT) 34 U/L (14-36); Albumin 4.5 g/dl (3.5-5.0); Alkaline Phosphatase 72 U/L (38-126); Blood Urea Nitrogen 9 mg/dl (7-17); Carbon Dioxide 27 mmol/L (22-30); Chloride 107 mmol/L (98-107); Glucose 100 mg/dl (70-99); Lipase 101 U/L (23-300); Potassium 4.1 mmol/L (3.5-5.1); Sodium 144 mmol/L (135-145); Total Bilirubin 0.6 mg/dl (0.2-1.3); Total Protein 7.2 g/dl (6.3-8.2); eGFR > 60.00
--- NOTE | 2024-09-01 14:36 | ED.GENMED ---
History of Present Illness
General
Chief Complaint: Abdominal Symptoms
Time Seen by Provider: 09/01/24 14:04
History of Present Illness
History of Present Illness:
Patient is a 63-year-old female with a history of chronic abdominal issues including abdominal pain diarrhea nausea and with recurrent lower abdominal pain. She presents emergency department with continued abdominal pain, nausea, diarrhea. Patient
was seen in the emergency department 2 days ago and had a negative workup including a CT scan of her abdomen and pelvis she states that she has persistent nausea vomiting and diarrhea. There is no blood. Endorses generalized abdominal discomfort
without focal pain. Denies fever. Denies recent antibiotic use
Past History
Past History
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
ED Past Surgical History: Cholecystectomy, Gynecological and Orthopedic
Social History
Tobacco: Smoker
Alcohol: None
Drug: None
Personal:
Living: alone
Employment: Disabled
Family History
Family History: Other (Noncontributory)
Phy Exam
Physical Exam
Physical Exam:
GENERAL APPEARANCE: Tearful, anxious appearing, holding emesis bag but no active vomiting
EYES lids/conjunctiva normal
EARS/NOSE/THROAT Mucous membranes moist, uvula midline without oral pharyngeal erythema, exudate or swelling
HEAD/NECK normocephalic atraumatic, neck is supple.
RESPIRATORY respiratory effort normal, speaks in full sentences, no accessory muscle use. Lungs clear to auscultation without rhonchi, wheezes, rales
CARDIAC Regular rate and rhythm, no edema.
ABDOMINAL Soft, nondistended, no focal tenderness, diffuse mild tenderness
MUSCLES/EXTREMITIES No abnormal range of motion, no swelling.
SKIN Warm, pink and dry. No rashes
NEUROLOGICAL Speech is clear and appropriate. Normal level of consciousness. 5/5 strength in all extremities.
PSYCH anxious mood and affect,. Judgement/competence is appropriate
Course
Orders/Labs/Results
Orders:
Orders
09/01/24 11:12
ECG [Electrocardiogram (*1)] Urgent
Reason for Study: Other
Other Reason for Exam: jaw pain
EKG- Treatment ONCE
09/01/24 11:59
Complete Blood Count/With Diff Urgent
Comprehensive Metabolic Panel Urgent
Lipase Urgent
09/01/24 14:34
0.9% Sodium Chloride 1000 ml [Nss] 1,000 ml IV BOLUS
Ondansetron Injectable [Zofran] 4 mg IV NOW STA
09/01/24 14:38
Metoclopramide [Reglan] 10 mg IV NOW STA
09/01/24 14:54
Lorazepam [Ativan] 2 mg .ROUTE .STK-MED ONE
09/01/24 15:26
Lorazepam [Ativan] 1 mg IV NOW STA
09/01/24 15:31
C DIFF [C difficile Antigen & Toxins] Urgent
HAL[facility] Source: Feces/Stool
Specimen Description:
Date Specimen was Collected: 09/01/24
Time Specimen was Collected: 14:59
Stool Culture Urgent
[facility] Source: Feces/Stool
Specimen Description:
Date Specimen was Collected: 09/01/24
Time Specimen was Collected: 14:59
Abnormal Lab Results
09/01/24
11:59
MCH 31.1 H pg
(27.0-31.0)
Absolute Neuts (auto) 7.4 H 10^3/uL
(1.4-6.5)
Lymphocytes % 20.0 L %
(20.5-51.1)
Glucose 100 H mg/dl
(70-99)
09/01/24 11:59
09/01/24 11:59
Vital Signs
Initial and Last Documented VS:
Initial Vital Signs
Temp Pulse Resp BP Pulse Ox
98.4 F 86 20 145/79 99
09/01/24 11:08 09/01/24 11:08 09/01/24 11:08 09/01/24 11:08 09/01/24 11:08
Last Documented Vital Signs
Temp Pulse Resp BP Pulse Ox
98.4 F 78 17 128/76 97
09/01/24 11:08 09/01/24 19:02 09/01/24 19:02 09/01/24 19:02 09/01/24 19:02
*Critical Care Note
Total Time (30-74mins, 75-104mins- exclusive of procedures): Not Applicable
ED Attending Note
-
Portions of this chart may have been created with voice recognition software.� Occasional wrong word or��sound alike� substitutions may have occurred due to the inherent limitations of voice recognition software.
Discharge Plan
Departure
Patient Disposition: Home (Routine Discharge)
Date of Disposition: 09/01/24
Time of Disposition: 18:21
Patient with high blood pressure during this ER visit?: Yes
Discharge Problem:
Nausea & vomiting
Instructions: Glynn Diet, Acute Nausea and Vomiting
Prescriptions:
New
ondansetron 4 mg tablet,disintegrating
4 mg PO TIDPRN PRN (Reason: nausea/vomiting) Qty: 20 0RF
No Action
lorazepam 0.5 MG tablet
0.5 tab PO BID
Patient Comments:
08/03/23 filled on 07/28/23 #30
Theragen Tablet
1 tab PO MOFR
Benefiber (guar gum) Packet
1 tbsp PO DAILY
furosemide 20 mg Tablet
20 mg PO DAILYPRN PRN (Reason: fluid retention)
diphenhydramine-acetaminophen [Tylenol PM Extra Strength] 25-500 mg Tablet
1 tab PO HS
Visbiome 112.5 billion cell Capsule
1 cap PO DAILY
albuterol sulfate 90 mcg/actuation Aerosol Powdr Breath Activated
2 inh INHALATION R Q6HPRN PRN (Reason: sob)
cyclobenzaprine 10 mg tablet
10 mg PO TID PRN (Reason: muscle spasm) Qty: 12 0RF
dicyclomine 10 mg capsule
10 mg PO QID PRN (Reason: abdominal pain) Qty: 30 0RF
levofloxacin 750 mg tablet
750 mg PO DAILY 7 Days Qty: 7 0RF
metronidazole 500 mg tablet
500 mg PO BID 7 Days Qty: 14 0RF
ondansetron 4 mg tablet,disintegrating
4 mg PO Q6H PRN (Reason: nausea and vomiting) Qty: 7 0RF
metoclopramide HCl 10 mg tablet
10 mg PO Q6H PRN (Reason: nausea and vomiting) Qty: 10 0RF
Referrals:
Ken Gutierrez MD [Family Provider] -
Activity Restrictions/Additional Instructions:
please follow up with your GI doctor as scheduled this week
return to ER if worse
Interventions
Interventions:
*Risk Screen - Suicide Last Done: 09/01/24 16:48
*General Assessment Last Done: 09/01/24 11:08
*Neglect/Abuse Screening Last Done: 09/01/24 16:48
ED- Fall Risk Assessment Last Done: 09/01/24 16:48
*Nursing Disposition Last Done: 09/01/24 19:02
[facility]-Pbqofp-Bigwpljgbk Assessment Last Done: 09/01/24 16:48
Discharge Date and Time
Discharge Date/Time: 09/01/24 19:02
Print Language: MAORI
[2024-09-01] MEDS: ZOFRAN 4 MG IV (15:17)
[2024-09-01] MEDS: REGLAN 10 MG IV (15:21)
[2024-09-01] MEDS: NSS 1000 IV (15:25)
[2024-09-01] MEDS: ATIVAN 1 MG IV (15:27)
[2024-09-01 16:00] VITALS: BP 122/76
[2024-09-01 18:00] VITALS: BP 118/72
[2024-09-01 19:02] VITALS: BP 128/76
== END 2024-09-01 19:02 | disposition home or self-care (01) ==
LOC: EMR 11:06
PROVIDERS: Emergency Medicine; EMERGENCY PHYSICIAN Emergency Medicine; FAMILY PHYSICIAN Family Medicine
DX: R11.2 Nausea with vomiting, unspecified (principal); R10.84 Generalized abdominal pain; F17.200 Nicotine dependence, unspecified, uncomplicated; Z90.49 Acquired absence of other specified parts of digestive tract
CPT/HCPCS: 96374; 96375; 96361; 99284; 80053; 83690; 85025; 87045; 87046; 87077; 87324; 87427; 87449; 93005

== ENCOUNTER → 2024-09-05 15:21 | Outpatient (REF) | payer OTHER, SELFPAY | LOC: REG 15:21 | PROVIDERS: ATTENDING PHYSICIAN Internal Medicine | DX: R10.30 Lower abdominal pain, unspecified (principal); R19.8 Other specified symptoms and signs involving the digestive system and abdomen | CPT/HCPCS: 74019 ==

== ENCOUNTER 2024-09-22 20:42 | Emergency (ER) | payer OTHER, SELFPAY ==
[2024-09-22 20:51] VITALS: BP 175/88
[2024-09-22 21:08] LABS: % Basophils 0.5 % (0-2); % Eosinophils 2.3 % (0-6); % Immature Granulocytes 0.3 % (0-0.5); % Lymphocytes 30.1 % (20.5-51.1); % Monocytes 6.1 % (1.7-9.3); % Neutrophils 60.7 % (42.2-75.2); Absolute Basophils 0.1 10^3/uL (0-0.2); Absolute Eosinophils 0.2 10^3/uL (0-0.7); Absolute Lymphocytes 2.9 10^3/uL (1.2-3.4); Absolute Monocytes 0.6 10^3/uL (0.1-0.6); Absolute Neutrophils 5.8 10^3/uL (1.4-6.5); Hematocrit 42.7 % (37.0-47.0); Hemoglobin 13.9 g/dL (12.0-16.0); Mean Corp Hgb Conc. 32.6 g/dL (33.0-37.0); Mean Corpuscular Hgb 30.2 pg (27.0-31.0); Mean Corpuscular Volume 92.6 fL (81.0-99.0); Mean Platelet Volume 8.4 fL (7.4-10.4); Nucleated Red Blood Cells % 0 %; Platelet Count 235 10^3/uL (130-400); Red Blood Cell Count 4.61 10^6/uL (4.20-5.40); Red Cell Dist. Width 13.5 % (11.5-14.5); White Blood Cell Count 9.5 10^3/uL (4.8-10.8)
[2024-09-22 21:31] LABS: ALT (SGPT) 21 U/L (0-35); AST (SGOT) 33 U/L (14-36); Albumin 4.3 g/dl (3.5-5.0); Alkaline Phosphatase 77 U/L (38-126); Blood Urea Nitrogen 12 mg/dl (7-17); Calcium 9.4 mg/dl (8.4-10.2); Carbon Dioxide 25 mmol/L (22-30); Chloride 106 mmol/L (98-107); Glucose 127 mg/dl (70-99); Potassium 3.7 mmol/L (3.5-5.1); Sodium 139 mmol/L (135-145); Total Bilirubin 0.3 mg/dl (0.2-1.3); Total Protein 7.1 g/dl (6.3-8.2); eGFR > 60.00
[2024-09-22] MEDS: NSS 500 IV (22:22)
[2024-09-22 22:25] VITALS: BP 149/93
[2024-09-22 23:55] VITALS: BP 140/66
[2024-09-23] VITALS: BP 145/89
--- NOTE | 2024-09-23 00:44 | ED.GENMED ---
History of Present Illness
General
Chief Complaint: Throat Problem
Source: patient
Exam Limitations: none
Time Seen by Provider: 09/22/24 21:38
Nursing documentation reviewed up to this point in time: agreed with
History of Present Illness
History of Present Illness:
Patient is a 53-year-old female who presents to the emergency department after developing swelling underneath her right jaw. Patient states she developed a hard golf ball and then this evening suddenly seem to get softer. Started a week ago when
her neck was bothering her all week. Then developed a golf ball sharp pain. Patient felt swollen. And is now softer and not as large. Patient does smoke. Patient denies fever, chills, nausea, vomiting or diarrhea. Patient denies any difficulty
swallowing or breathing.
Past History
Past History
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
ED Past Surgical History: Cholecystectomy, Gynecological and Orthopedic
Social History
Tobacco: Smoker
Alcohol: None
Drug: None
Personal:
Living: alone
Employment: Disabled
Family History
Family History: Other (Noncontributory)
Review of Systems
Review of Systems
All Other Systems: Not applicable
Phy Exam
Physical Exam
Physical Exam:
Physical Exam
General: No apparent distress, alert and appropriate, well nourished, well hydrated
HENT: Normocephalic, supple with no lymphadenopathy, no thyromegaly. Swelling in the right submandibular region. Patient has a large torus mandibularis. Oropharynx is clear. Patient has poor dentition with dental caries
and gingivitis
Eyes: Clear sclera, conjuctiva without injection
Heart: Regular rhythm and rate. No S3, S4. No murmur.
Lungs: No respiratory distress, no stridor, lung sounds clear and equal bilaterally
Abdomen: Soft, nontender
Neuro: Alert and oriented x 3, CN II - XII intact, no motor focality, no cerebellar dysfunction
Psychiatric: well kept. interactive and cooperative
Extremities: No edema, cyanosis
Course
Orders/Labs/Results
Orders:
Orders
09/22/24 21:01
CMP [Comprehensive Metabolic Panel] Urgent
Complete Blood Count/With Diff Urgent
09/22/24 22:09
CT Neck With Iv Contrast Urgent
Comment:
Reason For Exam: swelling right submandibular
0.9% Sodium Chloride 500 ml [Nss] 500 ml IV BOLUS
09/23/24 00:43
Clindamycin HCl [Cleocin] 150 mg PO NOW STA
Abnormal Lab Results
09/22/24
21:01
MCHC 32.6 L g/dL
(33.0-37.0)
Glucose 127 H mg/dl
(70-99)
09/22/24 21:01
09/22/24 21:01
Vital Signs
Initial and Last Documented VS:
Initial Vital Signs
Temp Pulse Resp BP Pulse Ox
98.2 F 80 20 175/88 99
09/22/24 20:51 09/22/24 20:51 09/22/24 20:51 09/22/24 20:51 09/22/24 20:51
Last Documented Vital Signs
Temp Pulse Resp BP Pulse Ox
98.2 F 80 20 149/93 99
09/22/24 20:51 09/22/24 20:51 09/22/24 20:51 09/22/24 22:25 09/22/24 22:26
*Radiology
Radiology exam reviewed: radiology read reviewed (Signs of sialolithiasis)
*Pulse Oximetry
Patient hypoxic: no
*EKG
Interpreted by ED Provider?: NA
*Storage Battery Inspector And Tester Interpretation
Rate: Storage Battery Inspector And Tester- N/A
*Critical Care Note
Total Time (30-74mins, 75-104mins- exclusive of procedures): Not Applicable
ED Attending Note
-
Portions of this chart may have been created with voice recognition software.� Occasional wrong word or��sound alike� substitutions may have occurred due to the inherent limitations of voice recognition software.
Discharge Plan
Departure
Patient Disposition: Home (Routine Discharge)
Date of Disposition: 09/23/24
Time of Disposition: 00:47
Patient with high blood pressure during this ER visit?: Yes
Condition: Good
Covid-19: Not Applicable
Discharge Problem:
Salivary calculus
Instructions: Salivary Gland Stones, BLOOD PRESSURE
Prescriptions:
New
clindamycin HCl 150 mg capsule
150 mg PO Q6H Qty: 30 0RF
No Action
lorazepam 0.5 MG tablet
0.5 tab PO BID
Patient Comments:
08/03/23 filled on 07/28/23 #30
Theragen Tablet
1 tab PO MOFR
Benefiber (guar gum) Packet
1 tbsp PO DAILY
furosemide 20 mg Tablet
20 mg PO DAILYPRN PRN (Reason: fluid retention)
diphenhydramine-acetaminophen [Tylenol PM Extra Strength] 25-500 mg Tablet
1 tab PO HS
Visbiome 112.5 billion cell Capsule
1 cap PO DAILY
albuterol sulfate 90 mcg/actuation Aerosol Powdr Breath Activated
2 inh INHALATION R Q6HPRN PRN (Reason: sob)
cyclobenzaprine 10 mg tablet
10 mg PO TID PRN (Reason: muscle spasm) Qty: 12 0RF
dicyclomine 10 mg capsule
10 mg PO QID PRN (Reason: abdominal pain) Qty: 30 0RF
levofloxacin 750 mg tablet
750 mg PO DAILY 7 Days Qty: 7 0RF
metronidazole 500 mg tablet
500 mg PO BID 7 Days Qty: 14 0RF
ondansetron 4 mg tablet,disintegrating
4 mg PO Q6H PRN (Reason: nausea and vomiting) Qty: 7 0RF
metoclopramide HCl 10 mg tablet
10 mg PO Q6H PRN (Reason: nausea and vomiting) Qty: 10 0RF
ondansetron 4 mg tablet,disintegrating
4 mg PO TIDPRN PRN (Reason: nausea/vomiting) Qty: 20 0RF
Referrals:
Ken Gutierrez MD [Family Provider] - Follow up in 5-7 days
Activity Restrictions/Additional Instructions:
Continue present medications. Make sure to brush teeth well. Use lemon candy to suck on to help clear the gland.
Interventions
Interventions:
*General Assessment Last Done: 09/22/24 20:51
*Neglect/Abuse Screening Last Done: 09/22/24 22:23
ED- Fall Risk Assessment Last Done: 09/22/24 22:23
*ED COVID-19 Vaccine History Last Done: 09/22/24 22:23
ED-EENT Assessment Last Done: 09/22/24 22:23
ED- Pulmonary Assessment Last Done: 09/22/24 22:23
Discharge Date and Time
Print Language: PASHTO
[2024-09-23] MEDS: CLEOCIN 150 MG PO (00:53)
== END 2024-09-23 01:03 | disposition home or self-care (01) ==
LOC: EMR 20:42
PROVIDERS: Emergency Medicine; EMERGENCY PHYSICIAN Emergency Medicine; FAMILY PHYSICIAN Family Medicine
DX: K11.5 Sialolithiasis (principal); F17.200 Nicotine dependence, unspecified, uncomplicated; Z90.49 Acquired absence of other specified parts of digestive tract
CPT/HCPCS: 96360; 99284; 70491; 80053; 85025; Q9967

== ENCOUNTER 2024-10-17 11:10 | Emergency (ER) | payer OTHER, SELFPAY ==
[2024-10-17 11:33] VITALS: BP 135/82
[2024-10-17 12:00] LABS: % Basophils 0.6 % (0-2); % Eosinophils 1.3 % (0-6); % Immature Granulocytes 0.3 % (0-0.5); % Lymphocytes 10.3 % (20.5-51.1); % Monocytes 6.8 % (1.7-9.3); % Neutrophils 80.7 % (42.2-75.2); Absolute Eosinophils 0.1 10^3/uL (0-0.7); Absolute Lymphocytes 0.7 10^3/uL (1.2-3.4); Absolute Monocytes 0.5 10^3/uL (0.1-0.6); Absolute Neutrophils 5.5 10^3/uL (1.4-6.5); Hemoglobin 14.4 g/dL (12.0-16.0); Mean Corp Hgb Conc. 33.5 g/dL (33.0-37.0); Mean Corpuscular Hgb 31.2 pg (27.0-31.0); Mean Corpuscular Volume 93.1 fL (81.0-99.0); Mean Platelet Volume 8.5 fL (7.4-10.4); Nucleated Red Blood Cells % 0 %; Platelet Count 220 10^3/uL (130-400); Red Blood Cell Count 4.62 10^6/uL (4.20-5.40); Red Cell Dist. Width 13.5 % (11.5-14.5); White Blood Cell Count 6.8 10^3/uL (4.8-10.8)
[2024-10-17 12:11] LABS: ALT (SGPT) 28 U/L (0-35); AST (SGOT) 43 U/L (14-36); Albumin 4.3 g/dl (3.5-5.0); Alkaline Phosphatase 80 U/L (38-126); Blood Urea Nitrogen 8 mg/dl (7-17); Calcium 9.7 mg/dl (8.4-10.2); Carbon Dioxide 29 mmol/L (22-30); Chloride 104 mmol/L (98-107); Glucose 93 mg/dl (70-99); Potassium 4.8 mmol/L (3.5-5.1); Sodium 140 mmol/L (135-145); Total Bilirubin 0.5 mg/dl (0.2-1.3); Total Protein 7.3 g/dl (6.3-8.2); eGFR > 60.00
--- NOTE | 2024-10-17 12:31 | ED.GENMED ---
History of Present Illness
General
Chief Complaint: Headache
Time Seen by Provider: 10/17/24 12:31
History of Present Illness
History of Present Illness:
TIME OF INITIAL ENCOUNTER: 12:30 PM
HPI: The patient has multiple complaints and concerns. She has been having trouble with sensation of swelling to the right side of. This seems to have worsened. She had a CAT scan which showed sialoadenitis last month and has been on doxycycline.
She has some associated chills. She had worsening headache. She has vision changes however she also reports the vision changes have been going on for 'years'. She had a nightmare last night that she went blind. She also states that her right
eyelids were crusted shut this morning.
EXAM:
GENERAL: See below
HEENT: Moist oral mucosa
CARDIOVASCULAR: No murmurs, normal heart rate, regular rhythm, No chest wall tenderness
PULMONARY: No respiratory distress, breath sounds are clear and equal
ABDOMEN: Soft with no peritoneal signs, no tenderness
NEUROLOGIC: Excellent strength all extremities, no coordination deficits
PSYCHIATRIC: Flat and depressed affect and appears somewhat upset
EXTREMITIES: Nontender, no edema, moves all extremities equally
SKIN: No rash, no lesions
NUMBER AND COMPLEXITY OF PROBLEMS ADDRESSED AT THE ENCOUNTER
� Chronic conditions affecting care: Smoker, diverticular disease, anxiety/depression
� Acute Exacerbation and/or Progression of Chronic Illness: This is an acute problem but some of her complaints are chronic
� Differential Diagnosis includes: Viral syndrome, worsening sialoadenitis, postnasal drip, no evidence for sepsis based on vital signs and physical examination
AMOUNT AND/OR COMPLEXITY OF DATA TO BE REVIEWED AND ANALYZED
� I performed an independent evaluation of and my interpretation is:
EKG:
CT: CT head shows no acute abnormality
X-rays:
Laboratory Studies: CBC and chemistries unremarkable
Other:
� Review of other/old records: I reviewed records, the patient had a CAT scan of the neck with contrast that showed right submandibular gland sialoadenitis without stone
� Clinical information was obtained by an independent historian: None needed
� Prescriptions/Medications Considered but not given: Considered eyedrops for reported crusting of nausea however the patient has multiple allergies and has an unremarkable physical exam regarding her eyes therefore we will hold
off on any drop
� Further testing considered but not performed:
RISK OF COMPLICATIONS AND/OR MORBIDITY OR MORTALITY OF PATIENT MANAGEMENT
� Social determinants of health affecting care: Lives at home
� Discussion with other providers:
� Escalation of care including admission/observation vs risk of discharge considered: The patient has multiple complaints but overall is well-appearing. Lab work is reassuring.
ANY OTHER UPDATES:
The patient has multiple complaints and concerns. Blood work is normal. Vital signs are unremarkable. Tried a dose of Toradol. CT was also obtained. I reviewed the recent CT of the neck that suggest sialoadenitis without stone. She has been
seen by ENT.
Prior to discharge, I reassessed patient. Will try short course of steroids. She states that she has been under a lot of stress and reports pain that goes from the neck up to the head. We talked about the possibly of a tension type of headache.
However she appears fairly comfortable at time of discharge.
Past History
Past History
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
ED Past Surgical History: Cholecystectomy, Gynecological and Orthopedic
Social History
Tobacco: Smoker
Alcohol: None
Drug: None
Personal:
Living: alone
Employment: Disabled
Family History
Family History: Other (Noncontributory)
Phy Exam
Physical Exam
Physical Exam:
See HPI
Course
Orders/Labs/Results
Orders:
Orders
10/17/24 11:[address] [CT Head W/o Iv Contrast] Urgent
Comment:
Reason For Exam: headache
10/17/24 11:46
Complete Blood Count/With Diff Urgent
Comprehensive Metabolic Panel Urgent
Influenza A+B Rapid Molecular Urgent
HALIMA Source: Nasal Swab
Specimen Description:
10/17/24 11:47
ALFREDA, IgG Reflex to HEp-2 [S] Urgent
COVID-19 Antigen Urgent
Source: Nasal Swab
10/17/24 12:42
Ketorolac [Toradol] 30 mg IM NOW STA
10/17/24 13:22
Add On- LAB Urgent
Tests Added?: ALFREDA screen
Abnormal Lab Results
10/17/24
11:46
MCH 31.2 H pg
(27.0-31.0)
Absolute Lymphs (auto) 0.7 L 10^3/uL
(1.2-3.4)
Neutrophils % 80.7 H %
(42.2-75.2)
Lymphocytes % 10.3 L %
(20.5-51.1)
AST 43 H U/L
(14-36)
10/17/24 11:46
10/17/24 11:46
Vital Signs
Initial and Last Documented VS:
Initial Vital Signs
Temp Pulse Resp BP Pulse Ox
37.1 C 88 18 135/82 95
10/17/24 11:33 10/17/24 11:33 10/17/24 11:33 10/17/24 11:33 10/17/24 11:33
Last Documented Vital Signs
Temp Pulse Resp BP Pulse Ox
36.4 C 82 20 136/71 99
10/17/24 13:42 10/17/24 13:42 10/17/24 13:42 10/17/24 13:42 10/17/24 13:42
*Critical Care Note
Total Time (30-74mins, 75-104mins- exclusive of procedures): Not Applicable
ED Attending Note
-
Portions of this chart may have been created with voice recognition software.� Occasional wrong word or��sound alike� substitutions may have occurred due to the inherent limitations of voice recognition software.
Discharge Plan
Departure
Patient Disposition: Home (Routine Discharge)
Date of Disposition: 10/17/24
Time of Disposition: 14:47
Patient with high blood pressure during this ER visit?: Yes
Discharge Problem:
Headache
Prescriptions:
No Action
lorazepam 0.5 MG tablet
0.5 tab PO BID
Patient Comments:
08/03/23 filled on 07/28/23 #30
Theragen Tablet
1 tab PO MOFR
Benefiber (guar gum) Packet
1 tbsp PO DAILY
furosemide 20 mg Tablet
20 mg PO DAILYPRN PRN (Reason: fluid retention)
diphenhydramine-acetaminophen [Tylenol PM Extra Strength] 25-500 mg Tablet
1 tab PO HS
Visbiome 112.5 billion cell Capsule
1 cap PO DAILY
albuterol sulfate 90 mcg/actuation Aerosol Powdr Breath Activated
2 inh INHALATION R Q6HPRN PRN (Reason: sob)
ondansetron 4 mg tablet,disintegrating
4 mg PO Q6H PRN (Reason: nausea and vomiting) Qty: 7 0RF
metoclopramide HCl 10 mg tablet
10 mg PO Q6H PRN (Reason: nausea and vomiting) Qty: 10 0RF
Referrals:
Ken Gutierrez MD [Family Provider] -
Activity Restrictions/Additional Instructions:
The cause of your symptoms is unclear. Your vital signs are unremarkable with exception of minimal hypertension. Your white blood cell count is normal. Chemistry levels are normal. Regarding the possibly of Sjogren's or other rheumatologic
condition, and ALFREDA screen is currently pending. CAT scan of the brain is unremarkable. I reviewed her CAT scan of the neck from last month. I am sending a prescription for steroids to your pharmacy�this is a relatively low dose over the next few
days just to see if this helps your symptoms.
Interventions
Interventions:
*Risk Screen - Suicide Last Done: 10/17/24 11:33
*General Assessment Last Done: 10/17/24 11:33
*Neglect/Abuse Screening Last Done: 10/17/24 11:33
ED- Fall Risk Assessment Last Done: 10/17/24 13:42
*ED COVID-19 Vaccine History Last Done: 10/17/24 11:33
*Nursing Disposition Last Done: 10/17/24 15:07
ED- Neurological Assessment Last Done: 10/17/24 12:05
Discharge Date and Time
Discharge Date/Time: 10/17/24 15:08
Print Language: TAJIK
[2024-10-17 12:43] LABS: COVID-19 Antigen Negative (Negative)
[2024-10-17] MEDS: TORADOL 30 MG IM (13:10)
[2024-10-17 13:42] VITALS: BP 136/71; BMI 25.0
== END 2024-10-17 15:08 | disposition home or self-care (01) ==
LOC: EMR 11:10
PROVIDERS: Emergency Medicine; EMERGENCY PHYSICIAN Emergency Medicine; FAMILY PHYSICIAN Family Medicine
DX: R51.9 Headache, unspecified (principal); F17.200 Nicotine dependence, unspecified, uncomplicated; Z90.49 Acquired absence of other specified parts of digestive tract
CPT/HCPCS: 96372; 99284; 70450; 80053; 85025; 86038; 87502; 87811

== ENCOUNTER 2025-05-08 18:53 | Emergency (ER) | payer OTHER, SELFPAY ==
[2025-05-08 18:54] VITALS: BP 160/87
--- NOTE | 2025-05-08 19:40 | ED.GENMED ---
History of Present Illness
General
Chief Complaint: Abdominal Pain
Source: patient and records
Exam Limitations: none
Time Seen by Provider: 05/08/25 19:22
Nursing documentation reviewed up to this point in time: agreed with
History of Present Illness
History of Present Illness:
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
lost 20 or 30 pounds intentionally due to dietary changes she has had diverticulitis as well multiple drug allergies smoker nondrinker
Past History
Past History
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
ED Past Surgical History: Cholecystectomy, Gynecological and Orthopedic
Social History
Tobacco: Smoker
Alcohol: None
Drug: None
Personal:
Living: alone
Employment: Disabled
Family History
Family History: Other (Noncontributory)
Review of Systems
Review of Systems
All Other Systems: Not applicable
Constitutional: Reports fatigue and chills
EENT: Reports no symptoms
Respiratory: Reports no symptoms
Cardiac: Reports no symptoms
ABD/GI: Reports abdominal pain, constipated and bloody stools
: Reports no symptoms
Musculoskeletal: Reports no symptoms
Skin: Reports no symptoms
Phy Exam
Physical Exam
Physical Exam:
Physical Exam
General: no apparent distress, not acutely ill
Neck: No jaundice
Heart: s1/s2 regular rate and rhythm, no murmur. equal radial pulses.
Lungs: no acute respiratory distress. clear bilaterally
Abdomen: Tender in the left lower abdomen
Neuro: alert and oriented. no focal neurological deficits
Skin: no rash
Psychiatric: well kept. interactive and cooperative
Extremities: no edema.
Course
Orders/Labs/Results
Orders:
Orders
05/08/25 19:33
CT Abd/Pel (IV only)-DH only Urgent
Comment:
Reason For Exam: llq pain
05/08/25 19:45
Complete Blood Count/With Diff Urgent
Comprehensive Metabolic Panel Urgent
05/08/25 22:19
LevoFLOXacin [Levaquin] 250 mg PO NOW STA
Abnormal Lab Results
05/08/25
19:45
WBC 11.9 H 10^3/uL
(4.8-10.8)
Absolute Neuts (auto) 8.3 H 10^3/uL
(1.4-6.5)
Chloride 108 H mmol/L
(98-107)
Glucose 104 H mg/dl
(70-99)
Calcium 10.3 H mg/dl
(8.4-10.2)
05/08/25 19:45
05/08/25 19:45
Vital Signs
Initial and Last Documented VS:
Initial Vital Signs
Temp Pulse Resp BP Pulse Ox
98.0 F 78 16 160/87 98
05/08/25 18:54 05/08/25 18:54 05/08/25 18:54 05/08/25 18:54 05/08/25 18:54
Last Documented Vital Signs
Temp Pulse Resp BP Pulse Ox
98.0 F 69 18 132/93 96
05/08/25 18:54 05/08/25 19:48 05/08/25 19:48 05/08/25 19:48 05/08/25 19:48
MDM/Problems Addressed
Differential Diagnosis Includes:
Colitis diverticulitis constipation hemorrhoids
MDM/Problems Addressed:
Constipation bleeding,
Chronic conditions affecting care:
Irritable bowel
Chronic conditions affecting care: Previous abdomnial surgery
Acute Exacerbation and/or Progression of Chronic Illness: Previous abdomnial surgery
*Radiology
Radiology exam reviewed: radiology read reviewed
*Pulse Oximetry
SaO2: 98
Oxygen Mode of Delivery: Room air
Patient hypoxic: no
*Critical Care Note
Total Time (30-74mins, 75-104mins- exclusive of procedures): Not Applicable
Update Note
Update Note:
Update, does not appear to be a certain acute issue although she states her bleeding usually subsides, did review her old records briefly she has had numerous CAT scans reviewed my concerns for that she is fairly adamant that she would like to
proceed with a CAT scan
10:20 PM, CT report noted reviewed with patient patient is multiple questions about correlation with her thyroid function test, discussed with patient does not my realm of expertise and to follow-up with her outpatient physicians, tells me that she
usually gets Levaquin 250 mg for diverticulitis she cannot have any penicillins,
ED Attending Note
-
Portions of this chart may have been created with voice recognition software.� Occasional wrong word or��sound alike� substitutions may have occurred due to the inherent limitations of voice recognition software.
Discharge Plan
Departure
Patient Disposition: Home (Routine Discharge)
Date of Disposition: 05/08/25
Time of Disposition: 22:20
Patient with high blood pressure during this ER visit?: No
Condition: Good
Covid-19: Not Applicable
Discharge Problem:
Diverticulitis, Rectal bleeding
Instructions: Diverticulitis (DC)
Prescriptions:
New
levofloxacin 250 mg tablet
250 mg PO DAILY 10 Days Qty: 10 0RF
metronidazole 250 mg tablet
250 mg PO BID Qty: 10 0RF
hydrocortisone [Anusol-HC] 2.5 % cream with perineal applicator
1 applic [place] DAILY PRN (Reason: hemorrhoids) Qty: 30 0RF
No Action
lorazepam 0.5 MG tablet
0.5 tab PO BID
Patient Comments:
08/03/23 filled on 07/28/23 #30
Theragen Tablet
1 tab PO MOFR
Benefiber (guar gum) Packet
1 tbsp PO DAILY
furosemide 20 mg Tablet
20 mg PO DAILYPRN PRN (Reason: fluid retention)
diphenhydramine-acetaminophen [Tylenol PM Extra Strength] 25-500 mg Tablet
1 tab PO HS
Visbiome 112.5 billion cell Capsule
1 cap PO DAILY
albuterol sulfate 90 mcg/actuation Aerosol Powdr Breath Activated
2 inh INHALATION R Q6HPRN PRN (Reason: sob)
ondansetron 4 mg tablet,disintegrating
4 mg PO Q6H PRN (Reason: nausea and vomiting) Qty: 7 0RF
metoclopramide HCl 10 mg tablet
10 mg PO Q6H PRN (Reason: nausea and vomiting) Qty: 10 0RF
Referrals:
Ken Gutierrez MD [Family Provider, Family Practice]
Funmi Newell MD [Active, Gastroenterology] - Next open appointment
Interventions
Interventions:
*Risk Screen - Suicide Last Done: 05/08/25 18:54
*Neglect/Abuse Screening Last Done: 05/08/25 18:54
IK-Otsflg-Sjeirosdeo Assessment Last Done: 05/08/25 19:50
Discharge Date and Time
Print Language: CZECH
[2025-05-08 19:46] VITALS: BMI 33.2
[2025-05-08 19:48] VITALS: BP 132/93
[2025-05-08 20:03] LABS: Hematocrit 41.3 % (37.0-47.0); Hemoglobin 13.9 g/dL (12.0-16.0); Mean Corp Hgb Conc. 33.7 g/dL (33.0-37.0); Mean Corpuscular Volume 89.2 fL (81.0-99.0); Nucleated Red Blood Cells % 0 %; Platelet Count 260 10^3/uL (130-400); Red Cell Dist. Width 13.2 % (11.5-14.5)
[2025-05-08 20:23] LABS: ALT (SGPT) 20 U/L (0-35); AST (SGOT) 26 U/L (14-36); Albumin 4.4 g/dl (3.5-5.0); Alkaline Phosphatase 65 U/L (38-126); Blood Urea Nitrogen 12 mg/dl (7-17); Calcium 10.3 mg/dl (8.4-10.2); Carbon Dioxide 25 mmol/L (22-30); Chloride 108 mmol/L (98-107); Estimated Creatinine Clearance 64 ml/min; Glucose 104 mg/dl (70-99); Potassium 4.0 mmol/L (3.5-5.1); Sodium 141 mmol/L (135-145); Total Protein 7.2 g/dl (6.3-8.2); eGFR > 60.00
[2025-05-08] MEDS: LEVAQUIN 250 MG PO (22:43)
[2025-05-08 22:46] VITALS: BP 146/90
== END 2025-05-08 22:54 | disposition home or self-care (01) ==
LOC: EMR 18:53
PROVIDERS: EMERGENCY PHYSICIAN Emergency Medicine; FAMILY PHYSICIAN Family Medicine
DX: K62.5 Hemorrhage of anus and rectum (principal); K57.32 Diverticulitis of large intestine without perforation or abscess without bleeding; F41.9 Anxiety disorder, unspecified; F32.A Depression, unspecified; M19.90 Unspecified osteoarthritis, unspecified site; M47.816 Spondylosis without myelopathy or radiculopathy, lumbar region; G89.29 Other chronic pain; F17.200 Nicotine dependence, unspecified, uncomplicated; Z90.49 Acquired absence of other specified parts of digestive tract; Z87.442 Personal history of urinary calculi; Z88.1 Allergy status to other antibiotic agents; Z88.5 Allergy status to narcotic agent; Z88.0 Allergy status to penicillin; Z88.2 Allergy status to sulfonamides
CPT/HCPCS: 99284; 74177; 80053; 85025; Q9967

== ENCOUNTER 2025-05-11 11:03 | Emergency (ER) | payer OTHER, SELFPAY ==
[2025-05-11 11:10] VITALS: BP 129/100
[2025-05-11 12:15] VITALS: BMI 22.7
--- NOTE | 2025-05-11 12:15 | ED.GENMED ---
History of Present Illness
General
Chief Complaint: Abdominal Symptoms
Source: patient and records
Exam Limitations: none
Time Seen by Provider: 05/11/25 11:55
History of Present Illness
History of Present Illness:
64yoF with a history of diverticulosis, kidney stones, and anxiety presenting for evaluation of abdominal pain. Patient was seen in the ED 3 days ago for abdominal pain. CT showed acute uncomplicated diverticulitis along descending/proximal
sigmoid colon. She was discharged with a prescription for Levaquin 250 mg daily and Flagyl 250 mg twice daily. She was seen again at [place] [facility] yesterday as she was not feeling well. She had a repeat CT scan with contrast and was told that she
did not have any inflammation. There was a renal cyst on her CT scan. Patient believes she is being misdiagnosed. She has a history of kidney stones and believes she has one again. Patient states her pain has now migrated to the left upper
quadrant and radiates to the left flank. She also reports chills and subjective fevers. Her normal body temperature is reported to be around 96 and she states that 98 degrees is high for her. She states 'I have never felt this bad in my entire
life.' She had some diarrhea earlier today with retching. She also feels dehydrated and reports decreased urination. No chest pain or shortness of breath.
Past History
Past History
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
ED Past Surgical History: Cholecystectomy, Gynecological and Orthopedic
Social History
Tobacco: Smoker
Alcohol: None
Drug: None
Personal:
Living: alone
Employment: Disabled
Family History
Family History: Other (Noncontributory)
Phy Exam
General Physical Exam
General Presentation: no apparent distress
General Skin: warm and dry
General Habitus: normal
General Mental: alert
ENT Exam
ENT Exam: normocephalic
Cardiovascular Exam
Cardiovascular Exam: regular rate/rhythm
Pulmonary Exam
Pulmonary Exam: lungs clear, no respiratory distress, no rales, no crackles, no rhonchi and no wheezing
Gastrointestinal Exam
Gastrointestinal Exam: soft, non distended and other (+LUQ tenderness. Abdomen soft, non-distended. No rebound or guarding.)
Neurological Exam
Neurological Exam: alert
Jing Coma Scale
Eye Opening: Spontaneous
Verbal Response: Oriented
Motor Response: Obeys Commands
GCS Total Score: 15
Skin Exam
Skin Exam: normal color and warm/dry
Psychiatric Exam
Psychiatric Exam: normal mood/affect
Course
Orders/Labs/Results
Orders:
Orders
05/11/25 12:14
0.9% Sodium Chloride 1000 ml [Nss] 1,000 ml IV BOLUS
05/11/25 12:15
CT Abd/pel Without Iv Or Oral Urgent
Comment:
Reason For Exam: LUQ pain, L flank pain
05/11/25 12:30
Complete Blood Count/With Diff Urgent
Comprehensive Metabolic Panel Urgent
Lactate Level [Lactic Acid] Urgent
05/11/25 12:56
Ondansetron Injectable [Zofran] 4 mg IV NOW STA
05/11/25 14:47
Electrocardiogram (*1) Urgent
Reason for Study: Abdominal Pain
EKG- Treatment ONCE
05/11/25 14:50
Urinalysis Reflex To Culture Urgent
Date Specimen was Collected: 05/11/25
Time Specimen was Collected: 14:43
Abnormal Lab Results
05/11/25 05/11/25
12:30 14:50
Chloride 110 H mmol/L
(98-107)
Urine Ketones 1+ A
(Negative)
05/11/25 12:30
05/11/25 12:30
Vital Signs
Initial and Last Documented VS:
Initial Vital Signs
Temp Pulse Resp BP Pulse Ox
98.3 F 80 16 129/100 98
05/11/25 11:10 05/11/25 11:10 05/11/25 11:10 05/11/25 11:10 05/11/25 11:10
Last Documented Vital Signs
Temp Pulse Resp BP Pulse Ox
97.8 F 79 18 118/75 99
05/11/25 16:08 05/11/25 15:00 05/11/25 15:00 05/11/25 15:00 05/11/25 15:00
MDM/Problems Addressed
Differential Diagnosis Includes:
64yoF here with LUQ abd pain radiating to L flank. Seen in ED 3 days ago for acute diverticulitis. Believes she was misdiagnosed and thinks she has a kidney stone. VSS. She is non-toxic appearing. No signs of peritonitis on abdominal exam.
Differential diagnosis includes but is not limited to: diverticulitis, colitis, musculoskeletal, pyelonephritis, doubt kidney stone
Initial ED plan: Check CBC, CMP, lactate, UA, and CT abdomen without contrast. IV fluid bolus.
*Pulse Oximetry
SaO2: 98
Oxygen Mode of Delivery: Room air
Patient hypoxic: no (98%)
*EKG
Interpreted by ED Provider?: Yes
EKG Intrepretation Date: 05/11/25
Heart Rate: 66
Rate: normal
Rhythm: sinus
[place]: normal axis
Interval: normal interval
QRS Pattern: normal QRS
Ischemia: no ischemia
*Critical Care Note
Total Time (30-74mins, 75-104mins- exclusive of procedures): Not Applicable
Update Note
Update Note:
Labs unremarkable including normal white count and lactate. Renal function normal. UA bland without hematuria or signs of infection. CT shows resolving changes of acute diverticulitis. No evidence of ureterolithiasis noted. EKG added for
completeness which shows NSR without ischemic changes. No indication for hospitalization. She was advised to continue her antibiotics and f/u closely with her PCP. She was discharged in stable condition.
ED Attending Note
-
Portions of this chart may have been created with voice recognition software.� Occasional wrong word or��sound alike� substitutions may have occurred due to the inherent limitations of voice recognition software.
Discharge Plan
Departure
Patient Disposition: Home (Routine Discharge)
Date of Disposition: 05/11/25
Time of Disposition: 15:34
Patient with high blood pressure during this ER visit?: No
Discharge Problem:
Left upper quadrant abdominal pain
Instructions: Abdominal Pain
Prescriptions:
No Action
lorazepam 0.5 MG tablet
0.5 tab PO BID
Patient Comments:
08/03/23 filled on 07/28/23 #30
Theragen Tablet
1 tab PO MOFR
Benefiber (guar gum) Packet
1 tbsp PO DAILY
furosemide 20 mg Tablet
20 mg PO DAILYPRN PRN (Reason: fluid retention)
diphenhydramine-acetaminophen [Tylenol PM Extra Strength] 25-500 mg Tablet
1 tab PO HS
Visbiome 112.5 billion cell Capsule
1 cap PO DAILY
albuterol sulfate 90 mcg/actuation Aerosol Powdr Breath Activated
2 inh INHALATION R Q6HPRN PRN (Reason: sob)
ondansetron 4 mg tablet,disintegrating
4 mg PO Q6H PRN (Reason: nausea and vomiting) Qty: 7 0RF
metoclopramide HCl 10 mg tablet
10 mg PO Q6H PRN (Reason: nausea and vomiting) Qty: 10 0RF
levofloxacin 250 mg tablet
250 mg PO DAILY 10 Days Qty: 10 0RF
metronidazole 250 mg tablet
250 mg PO BID Qty: 10 0RF
hydrocortisone [Anusol-HC] 2.5 % cream with perineal applicator
1 applic [place] DAILY PRN (Reason: hemorrhoids) Qty: 30 0RF
Referrals:
Ken Gutierrez MD [Family Provider, Family Practice]
Activity Restrictions/Additional Instructions:
Continue taking antibiotics.
Please follow-up with your family doctor in the next 48 hours. Return to the ER with any new or worsening symptoms.
Interventions
Interventions:
*Risk Screen - Suicide Last Done: 05/11/25 11:10
*General Assessment Last Done: 05/11/25 12:16
*Neglect/Abuse Screening Last Done: 05/11/25 11:10
*ED- Fall Risk Assessment Last Done: 05/11/25 12:16
*ED COVID-19 Vaccine History Last Done: 05/11/25 12:16
*Nursing Disposition Last Done: 05/11/25 16:08
CL-Eufzer-Kljqjjyubd Assessment Last Done: 05/11/25 12:16
Discharge Date and Time
Discharge Date/Time: 05/11/25 16:09
Print Language: SPANISH
[2025-05-11] MEDS: NSS 1000 IV (12:29)
[2025-05-11 12:40] LABS: Hematocrit 42.3 % (37.0-47.0); Hemoglobin 14.1 g/dL (12.0-16.0); Mean Corp Hgb Conc. 33.3 g/dL (33.0-37.0); Mean Corpuscular Volume 91.4 fL (81.0-99.0); Nucleated Red Blood Cells % 0 %; Platelet Count 238 10^3/uL (130-400); Red Cell Dist. Width 13.2 % (11.5-14.5)
[2025-05-11 12:54] LABS: ALT (SGPT) 19 U/L (0-35); AST (SGOT) 27 U/L (14-36); Albumin 4.4 g/dl (3.5-5.0); Alkaline Phosphatase 66 U/L (38-126); Blood Urea Nitrogen 10 mg/dl (7-17); Calcium 10.1 mg/dl (8.4-10.2); Carbon Dioxide 25 mmol/L (22-30); Chloride 110 mmol/L (98-107); Estimated Creatinine Clearance -35 ml/min; Glucose 96 mg/dl (70-99); Potassium 4.4 mmol/L (3.5-5.1); Sodium 141 mmol/L (135-145); Total Protein 7.3 g/dl (6.3-8.2); eGFR > 60.00
[2025-05-11 13:00] VITALS: BP 120/79
[2025-05-11] MEDS: ZOFRAN 4 MG IV (13:00)
[2025-05-11 14:56] LABS: Urine Character Clear (Clear)
[2025-05-11 15:00] VITALS: BP 118/75
== END 2025-05-11 16:09 | disposition home or self-care (01) ==
LOC: EMR 11:03
PROVIDERS: Physician Assistant; EMERGENCY PHYSICIAN Emergency Medicine; FAMILY PHYSICIAN Family Medicine
DX: R10.12 Left upper quadrant pain (principal); F41.9 Anxiety disorder, unspecified; F32.A Depression, unspecified; M47.816 Spondylosis without myelopathy or radiculopathy, lumbar region; F17.200 Nicotine dependence, unspecified, uncomplicated; Z87.442 Personal history of urinary calculi
CPT/HCPCS: 99284; 96374; 96361; 74176; 80053; 81003; 83605; 85025; 93005

== ENCOUNTER 2025-08-07 11:25 | Emergency (ER) | payer OTHER, SELFPAY ==
[2025-08-07 11:30] VITALS: BP 161/82
[2025-08-07 12:01] VITALS: BMI 29.5
[2025-08-07 12:36] VITALS: BP 124/76
[2025-08-07 12:56] LABS: Hematocrit 41.0 % (37.0-47.0); Hemoglobin 13.6 g/dL (12.0-16.0); Mean Corp Hgb Conc. 33.2 g/dL (33.0-37.0); Mean Corpuscular Volume 90.1 fL (81.0-99.0); Nucleated Red Blood Cells % 0 %; Platelet Count 270 10^3/uL (130-400); Red Cell Dist. Width 14.0 % (11.5-14.5)
[2025-08-07 13:12] LABS: ALT (SGPT) 20 U/L (0-35); AST (SGOT) 26 U/L (14-36); Albumin 4.1 g/dl (3.5-5.0); Alkaline Phosphatase 64 U/L (38-126); Blood Urea Nitrogen 16 mg/dl (7-17); Calcium 9.9 mg/dl (8.4-10.2); Carbon Dioxide 28 mmol/L (22-30); Chloride 106 mmol/L (98-107); Estimated Creatinine Clearance 64 ml/min; Glucose 90 mg/dl (70-99); Lipase 128 U/L (23-300); Potassium 3.8 mmol/L (3.5-5.1); Sodium 137 mmol/L (135-145); Total Protein 6.9 g/dl (6.3-8.2); eGFR > 60.00
[2025-08-07 13:21] LABS: Troponin I 0.013 ng/ml
[2025-08-07] MEDS: NSS 1000 IV (14:02)
--- NOTE | 2025-08-07 15:13 | ED.GENMED ---
History of Present Illness
General
Chief Complaint: Chest Pain
Source: patient
Time Seen by Provider: 08/07/25 13:01
History of Present Illness
History of Present Illness:
Note:
CHIEF COMPLAINT(S)
Palpitations with associated chest and back discomfort.
HISTORY OF PRESENT ILLNESS
The patient is a 64-year-old female who reports waking up due to a sensation of a 'big thud' in her heart, leading to palpitations. She describes the sensation as alarming, enough to wake her from sleep. This occurred twice: once in the middle of
the night and again in the shop tailor around 6:30 to 7:00 AM. The patient states, 'It almost felt like I for two seconds,' emphasizing the intensity of the sensation. Following these palpitations, she experienced discomfort on the left side
of her chest this morning, described as pain underneath her left breast and extending to the back, near the scapula. The patient has experienced palpitations in the past but states that this episode was distinct and more alarming. Her pain has
resolved.
PAST MEDICAL AND SURGICAL HISTORY
The patient does not report a history of heart attacks or coronary artery disease. There is no history of other significant illnesses such as hypertension or diabetes noted. However, she acknowledges elevated cholesterol levels, which she has chosen
not to treat with statins.
SOCIAL HISTORY
The patient does not consume alcohol or use recreational drugs, although she occasionally smokes cannabis for pain relief due to an allergy to pain medication. She has reduced her smoking to approximately six cigarettes per day. She maintains a
healthy diet, avoiding fried foods, soda, caffeine, and excessive sugar. The patient has current familial stress due to strained relations with her eldest daughter, which includes a history of domestic issues.
PHYSICAL EXAM
General: Alert, no acute distress.
Skin: Warm, dry.
Head: Normocephalic, atraumatic.
Neck: Supple, trachea midline.
Eye Ears, nose, mouth and throat: Oral mucosa moist.
Cardiovascular: Normal peripheral perfusion, No edema.
Respiratory: Respirations are non-labored.
Gastrointestinal: Abdomen nondistended.
Back: Normal range of motion, Normal alignment.
Musculoskeletal: Normal range of motion, normal strength.
Neurological: Alert and oriented to person, place, time, and situation, No focal neurological deficit observed.
Psychiatric: Cooperative, appropriate mood & affect.
PLAN
The plan includes intravenous fluid administration to address potential dehydration, a chest X-ray, and laboratory work, particularly focusing on cardiac markers and enzyme levels to assess for any cardiac abnormalities. The importance of reducing
smoking was discussed. The patient was encouraged to continue with lifestyle modifications and to monitor her symptoms closely.
DIFFERENTIAL DIAGNOSIS
The Differential Diagnosis includes, in no particular order and is not limited to:
- Paroxysmal supraventricular tachycardia
- Atrial fibrillation
- Premature ventricular contractions
- Anxiety-induced palpitations
- Myocardial ischemia
- Pericarditis
- Gastroesophageal reflux disease (GERD)
- Costochondritis
- Pulmonary embolism
- Panic disorder
EKG
My independent EKG interpretation is:
- Time of EKG: Not specified
- Rhythm: Normal
- Heart Rate: Normal
- NE Interval: Normal
- QRS Duration: Normal
- QT Interval: Normal
- [place]: Normal
- Abnormalities: No acute systemic changes observed
Disposition:
SUMMARY OF ENCOUNTER
The patient, a 64-year-old female, presented to the emergency department with complaints of an atypical chest discomfort following a sensation of a 'thud' in her chest. The palpitation occurred in the middle of the night, without associated pain but
was alarming. In the morning, she experienced discomfort, described as wrapping around the left side to her back. She denied current pain at the writ of presentation. Vital signs revealed a blood pressure of 124/76 mmHg. Initial workup included an
EKG, which indicated a normal rhythm with no ischemic changes. A chest X-ray showed no acute pulmonary processes. Laboratory testing revealed a negative troponin level at 0.013, normal comprehensive metabolic panel (CMP), and normal complete blood
count (CBC). The patient overall appeared well, afebrile, and without significant distress.
PLAN
The plan includes repeating the troponin level. If the repeat troponin remains undetectable, the patient will be discharged with instructions for outpatient follow-up with cardiology. An urgent follow-up will be arranged through the chest pain
follow-up hotline. If the repeat troponin shows elevation, cardiology consultation will be considered.
INDEPENDENT REVIEW OF LABS AND INTERPRETATION OF TESTS
- My independent review of the EKG is a normal rhythm with no ischemic changes.
- My independent review of the chest x-ray shows no acute pulmonary processes.
- My independent review of troponin indicates a negative result at 0.013.
- My independent review of the CMP is normal.
- My independent review of CBC is normal.
MEDICAL DECISION MAKING
- Number and Complexity of Problems Addressed: Chronic conditions affecting care include smoking. Differential diagnosis list includes paroxysmal supraventricular tachycardia, atrial fibrillation, premature ventricular contractions, anxiety-induced
palpitations, myocardial ischemia, pericarditis, gastroesophageal reflux disease (GERD), costochondritis, pulmonary embolism, and panic disorder.
- Data:
- Category 1:
- My independent interpretation of the EKG is normal with no ischemic changes.
- My independent interpretation of the chest x-ray is no acute pulmonary processes.
- Risk:
- Consideration of Admission/Observation: Escalation of care, including admission/observation, was considered due to the complexity and risk of the patients presenting complaint and underlying smoking habit. However, it was concluded that the
patient is stable for outpatient management with close follow-up, as work-up did not reveal any acute life-threatening issues, symptoms were well controlled, reexamination was reassuring, and the patient was agreeable to discharge and reliable for
follow-up.
DIAGNOSIS
- Palpitations (R00.2)
- Atypical chest pain (R07.89)
- Tobacco use disorder (Z72.0)
Past History
Past History
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
ED Past Surgical History: Cholecystectomy, Gynecological and Orthopedic
Social History
Tobacco: Smoker
Alcohol: None
Drug: None
Personal:
Living: alone
Employment: Disabled
Family History
Family History: Other (Noncontributory)
Phy Exam
Physical Exam
Physical Exam:
.
Scores
Heart Score for Chest Pain Patients
STEMI patient?: No
History: Slightly or Non-Suspicious
ECG: Normal
Age: >/= 65 years
Risk Factors: 1 or 2 Risk Factors
Troponin: </= Normal Limit
Heart Score for Chest Pain Patients: 3
Heart Score Risk: 2.5% MACE over next 6 weeks
Course
Orders/Labs/Results
Orders:
Orders
08/07/25 11:25
EKG [Electrocardiogram (*1)] Urgent
Reason for Study: Chest Pain
EKG- Treatment ONCE
08/07/25 12:47
CMP [Comprehensive Metabolic Panel] Urgent
Complete Blood Count/With Diff Urgent
Lipase Urgent
Troponin I Urgent
08/07/25 13:34
0.9% Sodium Chloride 1000 ml [Nss] 1,000 ml IV BOLUS
CR Chest - 2 Views Urgent
Comment:
Reason For Exam: L cP
08/07/25 15:39
Troponin I Urgent
08/07/25 12:47
08/07/25 12:47
Vital Signs
Initial and Last Documented VS:
Initial Vital Signs
Temp Pulse Resp BP Pulse Ox
98.0 F 76 16 161/82 98
08/07/25 11:30 08/07/25 11:30 08/07/25 11:30 08/07/25 11:30 08/07/25 11:30
Last Documented Vital Signs
Temp Pulse Resp BP Pulse Ox
98.0 F 67 20 124/76 99
08/07/25 11:30 08/07/25 15:30 08/07/25 15:30 08/07/25 12:36 08/07/25 15:14
*Pulse Oximetry
SaO2: 99
Oxygen Mode of Delivery: Room air
Patient hypoxic: no
*Critical Care Note
Total Time (30-74mins, 75-104mins- exclusive of procedures): Not Applicable
ED Attending Note
-
Portions of this chart may have been created with voice recognition software.� Occasional wrong word or��sound alike� substitutions may have occurred due to the inherent limitations of voice recognition software.
Discharge Plan
Departure
Patient with high blood pressure during this ER visit?: No
Discharge Problem:
Atypical chest pain
Instructions: Chest Pain CBC Follow Up
Prescriptions:
No Action
lorazepam 0.5 MG tablet
0.25 mg PO DAILY
Patient Comments:
08/03/23 filled on 07/28/23 #30
diphenhydramine-acetaminophen [Tylenol PM Extra Strength] 25-500 mg Tablet
1 tab PO HS
Rx Instructions:
takes children dose - but only takes 2.5 ml
Visbiome 112.5 billion cell Capsule
1 cap PO DAILY
albuterol sulfate 90 mcg/actuation Aerosol Powdr Breath Activated
2 inh INHALATION R Q6HPRN PRN (Reason: sob)
hydrocortisone [Anusol-HC] 2.5 % cream with perineal applicator
1 applic NE DAILY PRN (Reason: hemorrhoids) Qty: 30 0RF
Referrals:
Ken Gutierrez MD [Family Provider, Family Practice]
Activity Restrictions/Additional Instructions:
Please take 81 mg of aspirin a day. Please avoid strenuous or exertional activity until cleared by cardiology. Please see cardiology in the next 48 hours for reevaluation. Return immediately for worsening pain, shortness breath, palpitations,
sweating, nausea, weakness of any kind, numbness, tingling or any other concerns.
Cardiology has been notified and a follow up appointment has been requested. Someone will call you on the next business day to schedule a follow up appointment.
Interventions
Interventions:
*Risk Screen - Suicide Last Done: 08/07/25 11:30
*General Assessment Last Done: 08/07/25 11:30
*Neglect/Abuse Screening Last Done: 08/07/25 11:30
*ED- Fall Risk Assessment Last Done: 08/07/25 12:03
*ED COVID-19 Vaccine History Last Done: 08/07/25 12:03
*ED Influenza Vaccine History Last Done: 08/07/25 12:03
ED- Cardiac Assessment Last Done: 08/07/25 12:20
Discharge Date and Time
Print Language: TAIWANESE
[2025-08-07 15:51] VITALS: BP 125/88
[2025-08-07 16:09] LABS: Troponin I < 0.012 ng/ml
[2025-08-07 17:04] VITALS: BP 124/84
== END 2025-08-07 17:20 | disposition home or self-care (01) ==
LOC: EMR 11:25
PROVIDERS: EMERGENCY PHYSICIAN Emergency Medicine; FAMILY PHYSICIAN Family Medicine
DX: R07.89 Other chest pain (principal); R00.2 Palpitations; G89.29 Other chronic pain; F17.210 Nicotine dependence, cigarettes, uncomplicated; F12.90 Cannabis use, unspecified, uncomplicated; Z90.49 Acquired absence of other specified parts of digestive tract
CPT/HCPCS: 99285; 96360; 96361; 71046; 80053; 83690; 84484; 85025; 93005